=== PATIENT | female | born 1955 | race Caucasian/White ===

== ENCOUNTER 2020-05-23 14:04 | Outpatient (CLI) | payer OTHER, SELFPAY ==
--- NOTE | 2020-05-23 | DI.MRI_ITS ---
EXAM: MR LOWER JOINT LT WO CLINICAL HISTORY: ? POSTERIOR TIBIAL TENDON TEAR, LT TIBIAL TENDON DYSFUNCTION W/ PAIN. TECHNIQUE: Multiplanar multisequence MRI was performed. MR examination of the left ankle was perfor med according to the usual protocol. COMPARISON: No exams were available for comparison FINDINGS: There is reportedly clinical suspicion of tibialis posterior tendon tear. There is a moderate-sized accessory ossicle of the medial aspect of the navicular. There is mildly a bnormal signal of the navicular and the ossicle. There is abnormal signal in superomedial calcaneona vicular ligament and intermediate calcaneonavicular ligament. There is abnormal signal in an enlarge d tibialis posterior tendon, which shows a longitudinal split throughout most of its course. There i s markedly abnormal signal of the tibialis posterior tendon just proximal to its insertion on the acc essory ossicle of the medial navicular and there also appears to be abnormal signal of the more dista l portions of tibialis posterior tendon adjacent to their cuneiform insertions. No other significant ligamentous or tendinous abnormality seen involving the ankle apart from minimal ly abnormal signal adjacent to the Achilles insertion on the calcaneus. No other bony signal abnorma lity seen. 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 Abnormal signal also noted in spring ligament components including superomedial and inte rmediate calcaneonavicular ligaments. DATA REPOSITORY:
== END 2020-05-23 14:24 ==
PROVIDERS: PCP Nurse Practitioner Family; Visit Provider Podiatrist
DX: M79.605 Pain in left leg (principal); M76.822 Posterior tibial tendinitis, left leg; S86.112A Strain of other muscle(s) and tendon(s) of posterior muscle group at lower leg level, left leg, initial encounter
CPT/HCPCS: 73721

== ENCOUNTER 2021-03-08 08:48 | Day surgery (SDC) | payer OTHER, SELFPAY ==
[2021-03-08 09:06] VITALS: BP 152/84; PULSE 80; RESP 16; TEMP 36.8; O2SAT 96
[2021-03-08] MEDS: Tropicam./Phenyleph. (1/2.5%) 5 ML BTL OS ×3 (09:22→09:35)
[2021-03-08] MEDS: Tetracaine 0.5% 4 ML BTL OS (10:33)
[2021-03-08] MEDS: Balanced Salt Soln.-PLUS 500 ML BAG (10:34)
[2021-03-08] MEDS: Duovisc Viscoelastic System EACH 1 EACH (10:35)
[2021-03-08] MEDS: Lidocaine 1% Pres-Free 5 ML VIAL (10:35)
[2021-03-08] MEDS: Lidocaine 2% Jelly 6 ML SYR (10:36)
[2021-03-08] MEDS: Povidone-Iodine Ophth 30 ML BTL (10:37)
--- NOTE | 2021-03-08 10:55 | W.PM.DSUDISC ---
Discharge Plan Disposition Patient Disposition: HOME Condition: Good Discharge Details Attending Provider: Damien Narvaez Primary Care Provider: Sushma Salazar [place] Meds and New Rx's Prescriptions: No Action citalopram 40 mg Tablet 40 mg PO DAILY RF: 0 trazodone 50 mg tablet 50 - 100 mg PO HS PRNRF: 0 metoprolol succinate 50 mg tablet extended release 24 hr 50 mg PO DAILY RF: 0 colesevelam [WelChol] 625 mg Tablet 625 mg PO DAILY PRNRF: 0 pantoprazole 40 mg Tablet,Delayed Release (Dr/Ec) 40 mg PO DAILY RF: 0 hydrochlorothiazide 25 mg Tablet 25 mg PO DAILY RF: 0 lorazepam 1 mg tablet 0.5 mg PO DAILY PRNRF: 0 albuterol sulfate 90 mcg/actuation Hfa Aerosol Inhaler 1 puff INHALATION Q4H PRNRF: 0 gabapentin 100 mg Tablet 100 mg PO DAILY PRNRF: 0 diclofenac sodium 1 % gel 1 applic TOPICAL BID RF: 0 cholecalciferol (vitamin D3) [Vitamin D3] 50 mcg (2,000 unit) capsule 50 mcg PO DAILY RF: 0 Discharge Instructions Stand Alone Forms: Post-op Topical Cataract, [place] (DSU) Discharge Orders Discharge Orders: Discharge Order (Routine); Ordered 03/08/21 Ordered By: Damien Narvaez DS: Diagnosis Discharge Diagnosis (1) Cortical cataract of left eye: Status: Resolved (2) Nuclear sclerotic cataract of left eye: Status: Resolved
--- NOTE | 2021-03-08 10:56 | W.PM.OP ---
Date of service: 03/08/21 Time of Service: 10:56 Operative Note Operative Note DATE OF PROCEDURE: 03/08/21 PRE-OP DIAGNOSIS: Nuclear/cortical cataract, left eye POST-OP DIAGNOSIS: same PROCEDURE: Cataract extraction using phacoemulsification with intraocular lens implant, left eye SURGEON: Damien Narvaez ANESTHESIA TYPE: Local By Surgeon and MAC Refer to Anesthesia Record PATHOLOGY: none sent COMPLICATIONS: None Patient was transported to: same day Patient's condition: stable Implants: Dov and Dov Vision / [employer] Tecnis ZCB00 Indications: Progressive decreased vision due to cataract, left eye Procedure Description: CATARACT SURGERY OPERATIVE REPORT PREOPERATIVE DIAGNOSIS: Nuclear/cortical cataract, left eye POSTOPERATIVE DIAGNOSIS: Same OPERATION: Cataract extraction using phacoemulsification with posterior chamber intraocular lens implant, left eye. IOL: IOL Computer Systems Security Analyst/Model: J[employer]J Vision / ENE Tecnis ZCB00 IOL Power: + +21.0 diopters IOL Serial Number: [id number] Optic Diameter: 6.0mm Haptic/Overall Diameter: 13.0mm PHACO INFO: [employer] Vision System with OZil and Active Fluidics Cumulative Dispersed Energy (CDE): 5.11 seconds SURGEON: Damien Narvaez MD, DURGA ANESTHESIA: Monitored Anesthesia Care (MAC), with local sub-tenon's anesthetic infiltration COMPLICATIONS: None SPECIMENS: None INDICATIONS FOR PROCEDURE: The patient is a 65-year-old lady with history of diminished visual acuity in her left eye. She is noted to have a moderate nuclear and cortical cataract in the left eye. The option of cataract surgery was offered to the patient and she wished to proceed. PROCEDURE: The correct surgical eye was identified and marked as the left eye and the pupil was dilated in the preoperative area using mydriatics and cycloplegics. The dilated pupil size was 7.0 mm. Oral sedation was administered in the form of an Imprimis MKO Melt (midazolam 3mg/ketamine 25mg/ondansetron 2mg). The patient was brought to the operating room where cardiopulmonary monitoring was instituted and surgical time-out was performed, confirming the correct operative eye and IOL power. Topical anesthesia was administered and ophthalmic povidone-iodine 5% was instilled into the conjunctival fornices. Lidocaine gel was applied to the cornea and the killian-ocular area was prepped with Betadine 10% solution and draped in the usual sterile fashion for intraocular surgery, including an aperture drape. A Tegaderm transparent film dressing was cut in half and used to cover the lashes and lid margins. Care was taken to sequester the lashes and lid margins under the Tegaderm dressing. A lid speculum was placed between the lids of the operative eye and the Ever-Kristen operating microscope was maneuvered into position. Jaylin scissors were then used to make a conjunctival buttonhole approximately 6mm posterior to the limbus in the inferonasal quadrant. Blunt dissection was carried out to expose bare sclera, and a blunt-tipped sub-tenon?s anesthesia cannula was introduced and passed posteriorly along the globe where non-preserved plain lidocaine was injected into posterior sub-Tenon?s space. A sideport knife was used to make a paracentesis port superior/superiortemporally. Intraocular phenylephrine/lidocaine was injected into the anterior chamber. The anterior chamber was then filled with viscoelastic. A 2.4mm keratome knife was used to create a half-thickness groove at the limbus and then to construct a three-plane near-clear corneal tunnel extending 2.0mm into clear cornea in the temporal position. . A flap was raised on the anterior capsule and capsulorhexis forceps were used to complete a continuous curvilinear capsulorhexis of 5.5 mm. Balanced salt solution was then used to perform cortical cleaving hydrodissection and nuclear hydrodelineation until the lens could be freely rotated within the capsular bag. The lens nucleus was then disassembled and removed within the capsular bag and iris plane using phacoemulsification. Residual cortical material was removed using the 45-degree angled silicone I/A tip with 0.3mm port. The posterior capsule was carefully polished to remove as much residual lens epithelial cells as safely possible. The capsular bag was then inflated and the anterior chamber deepened with viscoelastic. The lens implant described above was inserted into the capsular bag using the ENE [place] Injector. A Kuglen hook was used to dial the IOL into position. Residual viscoelastic was then removed first from posterior to the IOL, then from the anterior chamber using the I/A handpiece. The lens implant was noted to center nicely within the capsular bag. The incisions were stromally hydrated, and the anterior chamber was reformed using BSS. Then 0.5cc of moxifloxacin 1.0mg/ml were injected into the capsular bag and anterior chamber. The incisions were checked with a Weck spear and found to be secure. Several drops of ophthalmic povidone-iodine 5% were then applied to the eye followed by two drops of Imprimis combination prednisolone/moxifloxacin/nepafenac solution. The drapes were removed and a clear plastic protective eye shield was placed over the eye. The patient was then returned to [facility] Surgery in stable condition.
[2021-03-08 11:20] VITALS: BP 136/77; PULSE 70; RESP 16; TEMP 36.4; O2SAT 95
== END 2021-03-08 11:25 | disposition home or self-care (01) ==
PROVIDERS: PCP Nurse Practitioner; Visit Provider Ophthalmology
PROC: (CPT 66984; principal; 2021-03-08 11:30)
DX: H25.12 Age-related nuclear cataract, left eye (principal); H25.012 Cortical age-related cataract, left eye; I10 Essential (primary) hypertension
CPT/HCPCS: 66984; V2632

== ENCOUNTER 2021-07-19 08:17 | Emergency (ER) | payer OTHER, SELFPAY ==
[2021-07-19 08:21] VITALS: BP 155/82; PULSE 104; RESP 20; TEMP 36.6; O2SAT 96
--- NOTE | 2021-07-19 08:30 | DI.CT_ITS ---
Exam(s) CT HEAD CERVICAL SPINE WO EXAM: CT HEAD CERVICAL SPINE WO CLINICAL HISTORY: cspine and STOREY post fall. TECHNIQUE: Imaging Protocol: Axial computed tomography images with coronal and sagittal reformatted images were created and reviewed COMPARISON: No exams were available for comparison FINDINGS: CT Head: Ventricles and Extra axial spaces: Normal in size and morphology for the patient's age. Hemorrhage: None. Cerebral parenchyma: Normal. Midline shift: None. Brainstem/Cerebellum: Normal. Calvarium: Normal. Visualized Paranasal sinuses/Mastoids: Clear. Soft Tissues: Unremarkable. CT Cervical Spine: Bones: No acute fracture or subluxation. Soft Tissues: Unremarkable. Lung Apices: Clear. IMPRESSION: 1. No acute intracranial process. 2. No acute fracture or subluxation in the cervical spine. 3. Results of this exam have been verbally communicated with provider. RADIATION DOSE DELIVERED: 1,255.75mGy.cm Total DLP DATA REPOSITORY: All CT scans at this facility are submitted to the National Radiology Data Registry (NRDR) Dose Index Registry (DIR) with the [employer] (ACR). RADIATION OPTIMIZATION: All CT scans at this facility use at least one of these dose optimization te chniques: automated exposure control; mA and/or kV adjustment per patient size (includes targeted exa ms where dose is matched to clinical indication); or iterative reconstruction.
--- OUTSIDE RECORDS SUMMARY | 2021-07-19 08:30 | XMS_ITS ---
:1955 Author Care Team Providers Name Role Phone DR. JAJA ADAMS Primary Care Provider [phone] DR. JAJA ADAMS Referring Provider [phone] JAJA ADAMS Primary Care Provider [phone] Allergies Code Code System Name Reaction Severity Status Onset NKDA ? Medications Name Status Start Date Stop Date ? ? citalopram 40 mg tablet Active ? Not avai lable Take 1 tablet every day by oral route. gabapentin 100 mg capsule Active ? Not av ailable Take 1 capsule every day by oral route as needed. hydrochlorothiazide 25 mg tablet Active ? Not available lorazepam 1 mg tablet Active ? Not availa ble TAKE 1-2 TABLET(s) (1 MG) BY ORAL ROUTE 3 TIMES PER DAY NEED ED metoprolol succinate ER 50 mg Active ? No t available tablet,extended release 24 hr omeprazole 40 mg capsule,delayed release Active ? Not available Take 1 capsule every day by oral route. Penlac 8 % topical solution Active ? Not available APPLY TO THE AFFECTED AREA(S) BY TOPICA L ROUTE ONCE DAILY PREFERABLY AT BEDTIME OR 8 HOURS BEFORE WASHING prednisone 20 mg tablet Active ? Not avai lable trazodone 50 mg tablet Active ? Not avail able Problems Name Status Onset Date Source ? Grief Finding Active ? ? Depressive Disorder Active ? ? Skin Tenderness Active ? ? Procedures Date Name Performed by ? ? Appendectomy Information not avai lable ? Cholecystectomy Information not avai lable ? Hysterectomy Information not avai lable ? Tonsillectomy Information not avai lable Results Lab Results Date Name Specimen Result Interpretation Description Value Range Status Address ? 01/26/2020 Influenza Normal [facility], (Lab): [address] [facility] ? ? Normal Flub negative negative Final [facility] (Lab): [address] [facility] Past Encounters None recorded. Social History Tobacco Smoking Status Never Smoker Vaccine List None recorded. Plan of Care Reminders Provider Appointments None ? ? recorded. Lab None ? ? recorded. Referral None ? ? recorded. Procedures None ? ? recorded. Surgeries None ? ? recorded. Imaging None ? ? recorded. Vitals 12/27/2019 02:30PM NEW PATIENT Blood Pressure 150/80 mm[Hg] 10/04/2019 02:45PM General Surgery Consult 40 min Weight Blood Pressure 83.91 kg 118/74 mm[Hg]
--- NOTE | 2021-07-19 08:39 | ED.GENADUL_ITS ---
Discharge Plan Disposition Patient Disposition: HOME Condition: Stable Discharge Details Clinical Impression: Diverticulitis, Abdominal pain, Fall Primary Care Provider: Sushma Salazar ED Provider: Julianne Frederick Home Meds and New Rx's Prescriptions: New amoxicillin-pot clavulanate [Augmentin] 875-125 mg tablet 1 tab PO BID Qty: 20 RF: 0 prochlorperazine maleate [Compazine] 5 mg tablet 5 mg PO TID PRNQty: 10 RF: 0 oxycodone 5 mg capsule 2.5 mg PO Q8H PRNQty: 5 RF: 0 fluconazole [Diflucan] 150 mg tablet 150 mg PO ONCE Qty: 1 RF: 0 No Action sodium chloride [Saline Nasal] 0.65 % Aerosol,[place] 2 spray INTRANASAL PRN PRNRF: 0 citalopram 40 mg Tablet 40 mg PO DAILY RF: 0 trazodone 50 mg tablet 50 - 100 mg PO HS PRNRF: 0 metoprolol succinate 50 mg tablet extended release 24 hr 50 mg PO DAILY RF: 0 colesevelam [WelChol] 625 mg Tablet 625 mg PO DAILY PRNRF: 0 pantoprazole 40 mg Tablet,Delayed Release (Dr/Ec) 40 mg PO DAILY RF: 0 hydrochlorothiazide 25 mg Tablet 25 mg PO DAILY RF: 0 lorazepam 1 mg tablet 0.5 mg PO DAILY PRNRF: 0 albuterol sulfate 90 mcg/actuation Hfa Aerosol Inhaler 1 puff INHALATION Q4H PRNRF: 0 gabapentin 100 mg Tablet 100 mg PO DAILY PRNRF: 0 diclofenac sodium 1 % gel 1 applic TOPICAL BID RF: 0 cholecalciferol (vitamin D3) [Vitamin D3] 50 mcg (2,000 unit) capsule 50 mcg PO DAILY RF: 0 Discharge Instructions Instructions: Diverticulitis (ED) Additional Instructions: Take Compazine as needed for nausea and vomiting, you may want to take this 20 minutes before taking your antibiotic Yogurt daily while taking antibiotics Take oxycodone for pain uncontrolled with Tylenol 650 which you may take every 4-6 hours Please be aware that oxycodone is addictive and it may make you constipated, use it sparingly, do not drive for 8 hours after taking this medication, return with worsening pain, fever, chills, or with any new or worsening complaints Recheck in 48 hours recommended Discharge Data Discharge Date/Time-TO BE ENTERED AT DEPARTURE: 07/19/21 11:56 Medical Decision Making Patient is well in appearance. Slight leukocytosis at 15,[address] scan shows evidence of diverticulitis She is otherwise afebrile and she would feel comfortable being discharged home She is asymptomatic There is no evidence of significant intra-abdominal pathology from trauma CT head and cervical spine do not show abnormality She is given antiemetics for home She is given a small amount of opiate analgesia with risk of addiction discussed Given very low threshold to return with new or worsening complaints recheck in 48 hours recommended HPI General Mode of arrival: ambulatory . Date/Time Provider Initiated Documentation: 07/19/21 08:29 . Limitations to Documentation: no limitations . Information obtained by: patient . HPI Narrative: This 65-year-old female with past medical history of cataracts, depression anxiety, asthma, hypertension, GERD presents status post fall on Thursday. She was using a weed Gogo when she slipped, landing on the handle of the way back on her left side. She does not believe she hit her head but has had a headache intermittently since that time. She denies any vomiting. She has abdominal pain in her left upper quadrant and left lower quadrant that is been persistent and is worsening which concerned her. She states it radiates to her flank. She denies any strength or sensation changes. She states her neck feels tight . She denies any chest pain or shortness of breath. She states with movement her pain dramatically worsens especially, walking and going from sitting to standing. She states it actually feels similarly to when she had diverticulitis in the past. She denies any blood in stool or urine. Denies any fever or chills. She has not taken any of the counter medications today. Related Data Home Medications Medication Instructions Recorded Confirmed albuterol sulfate 1 puff INHALATION Q4H PRN 03/06/21 07/19/21 cholecalciferol (vitamin D3) 50 mcg PO DAILY 03/06/21 07/19/21 [Vitamin D3] citalopram 40 mg PO DAILY 03/06/21 07/19/21 colesevelam [WelChol] 625 mg PO DAILY PRN 03/06/21 07/19/21 diclofenac sodium 1 applic TOPICAL BID 03/06/21 07/19/21 gabapentin 100 mg PO DAILY PRN 03/06/21 07/19/21 hydrochlorothiazide 25 mg PO DAILY 03/06/21 07/19/21 lorazepam 0.5 mg PO DAILY PRN 03/06/21 07/19/21 metoprolol succinate 50 mg PO DAILY 03/06/21 07/19/21 pantoprazole 40 mg PO DAILY 03/06/21 07/19/21 trazodone 50 - 100 mg PO HS PRN 03/06/21 07/19/21 amoxicillin-pot clavulanate 1 tab PO BID #20 tab 07/19/21 [Augmentin] fluconazole [Diflucan] 150 mg PO ONCE #1 tab 07/19/21 oxycodone 2.5 mg PO Q8H PRN #5 cap 07/19/21 prochlorperazine maleate 5 mg PO TID PRN #10 tab 07/19/21 [Compazine] sodium chloride [Saline Nasal] 2 spray INTRANASAL PRN PRN 07/19/21 07/19/21 Previous Rx's Medication Instructions Recorded amoxicillin-pot clavulanate 1 tab PO BID #20 tab 07/19/21 [Augmentin] fluconazole [Diflucan] 150 mg PO ONCE #1 tab 07/19/21 oxycodone 2.5 mg PO Q8H PRN #5 cap 07/19/21 prochlorperazine maleate 5 mg PO TID PRN #10 tab 07/19/21 [Compazine] Allergies Allergy/AdvReac Type Severity Reaction Status Date / Time No Known Allergies Allergy Unverified 07/19/21 08:23 General Stated Complaint: Trauma LALA: 3 Review of Systems All systems reviewed & are unremarkable except as noted in HPI and below PFSH Medical History (Updated 07/19/21 @ 11:46 by YAMILET Hernandez) Adjustment disorder Anxiety Breast cyst Right Depression GERD (gastroesophageal reflux disease) High blood pressure Hyperlipemia Mild obstructive sleep apnea Neuropathy pt denies PTSD (post-traumatic stress disorder) Surgical History (Updated 03/08/21 @ 10:56 by Damien Narvaez MD) History of cholecystectomy History of hysterectomy Hx of appendectomy Hx of removal of cyst R groin - multi cyst removal Hx of tonsillectomy Social History Smoking/Tobacco Use Status: Never Smoking risk assessment performed?: Yes Alcohol Intake: current Alcohol Intake frequency: holidays/special occasions only Drug use: Never Substance use type: does not use Do you feel safe at home: Yes Do you feel safe in your relationship?: Yes Exam Const General: cooperative and no acute distress HENMT Head: normal to inspection Mouth: oral mucosae normal Throat: uvula midline Other: No hemotympanum Eyes Pupils: PERRL Neck Other: Paraspinal tenderness Resp Effort & Inspection: normal respiratory effort Auscultation: clear to auscultation bilaterally Cardio Rate: regular rate Rhythm: regular rhythm GI Other: Left upper quadrant and left lower quadrant abdominal tenderness, no rebound or guarding, no visible sign of trauma, no abdominal bruit or pulse Skin General skin exam: no rashes or lesions noted Trauma: no lacerations or abrasions Neuro General: patient alert and patient oriented x3 Cranial Nerves: CN's II-XI intact bilaterally and tongue midline Gait: normal gait Motor: strength 5/5 throughout Sensory Exam: no sensory deficits noted Other: ambulatory with steady gait Extrem Other: No lower abdominal trauma Course Vital Signs Vital signs: Vital Signs Temperature 36.6 C 07/19/21 08:21 Pulse 104 H 07/19/21 08:21 Respiratory Rate 20 07/19/21 08:21 Blood Pressure 155/82 H 07/19/21 08:21 Pulse Oximetry 96 07/19/21 08:21 Temperature 36.6 C 07/19/21 08:21 Temperature Source Skin 07/19/21 08:21 Pulse 104 H 07/19/21 08:21 Respiratory Rate 20 07/19/21 08:21 Respiratory Effort Non-Labored 07/19/21 08:27 Blood Pressure 155/82 H 07/19/21 08:21 Blood Pressure Position Sitting 07/19/21 08:21 Pulse Oximetry 96 07/19/21 08:21 Oxygen Delivery Method Room Air 07/19/21 08:21 Oxygen Flow Rate 0 07/19/21 08:21 Pain Level 8 07/19/21 08:21
[2021-07-19] MEDS: ACETAMINOPHEN 1,000 MG/100 ML BTL 400 MG IVPB (08:54)
[2021-07-19 09:00] LABS: Abs Immature Grans 0.07 10^3/uL (0.0-0.06); Absolute Basophil Count 0.03 10^3/uL (0.0-0.2); Absolute Eosinophil Count 0.13 10^3/uL (0.0-0.7); Absolute Lymphocyte Count 1.97 10^3/uL (1.2-3.4); Basophils % 0.2; Eosinophils % 0.8; HCT 45.2 % (36.0-46.0); HGB 14.9 g/dL (11.2-15.7); Immature Grans % 0.4; Lymphocytes % 12.4; MCH 28.5 pg (27.0-33.0); MCV 86.4 fL (80-95); MPV 9.6 fL (8.0-11.0); Monocytes % 6.5; Neutrophils % 79.7; Nucleated RBC 0 %; Platelet Count 334 10^3/uL (130-400); RBC 5.23 10^6/uL (3.93-5.22); RDW-SD 40.8 fL; WBC 15.92 10^3/uL (4.4-10.8)
[2021-07-19 09:02] LABS: Absolute Monocyte Count 1.03 10^3/uL (0.1-0.8); Absolute Neutrophil Count 12.69 10^3/uL (1.2-6.7)
[2021-07-19 09:12] LABS: Bilirubin Negative (Negative); Blood Trace-lysed (Negative); Clarity Cloudy (Clear); Glucose Negative (Negative); Ketones Negative (Negative); Leukocyte Esterase Negative (Negative); Nitrite Negative (Negative); Specific Gravity >= 1.030 (1.005-1.025); pH 5.5 (5-8)
[2021-07-19 09:17] LABS: ALT 43 U/L (14-59); AST 17 U/L (15-37); Albumin 3.9 g/dL (3.4-5.0); Alkaline Phosphatase 81 U/L (46-116); Anion Gap 9.8 mmol/L (3-11); BUN 17 mg/dL (7-18); Bilirubin, Total 0.9 mg/dL (0.2-1.0); CO2 28.2 mmol/L (21.0-32.0); CREATININE 0.8 mg/dL (0.55-1.02); Calcium 9.6 mg/dL (8.5-10.1); Chloride 101 mmol/L (98-107); Glucose 133 mg/dL (74-106); Lipase 106 U/L (73-393); Potassium 3.9 mmol/L (3.5-5.1); Sodium 139 mmol/L (136-145); Total Protein 7.9 g/dL (6.4-8.2)
[2021-07-19 09:21] LABS: C & S Indicated? No/Sq. Contamination; Crystals Many Amorphous HPF (Negative); Epithelial Cells Many HPF (Negative); Mucus Heavy (Negative)
[2021-07-19] MEDS: Normal Saline 500 ML IV (10:02)
[2021-07-19] MEDS: Metoclopramide 10 MG/2 ML VIAL 5 MG IVP (10:05)
--- NOTE | 2021-07-19 10:30 | DI.CT_ITS ---
Exam(s) CT CHEST/ABD/PEL W EXAM: CT CHEST/ABD/PEL W CLINICAL HISTORY: left lower abdominal pain, luq pain, left chest pa TECHNIQUE: Imaging Protocol: Axial computed tomography images with coronal and sagittal reformatted images were created and reviewed CONTRAST MATERIAL: Intravenous: Omnipaque 350 Contrast volume:100 mL Oral: No COMPARISON: No exams were available for comparison FINDINGS: CHEST: Tracheobronchial tree: Patent where visualized. Pulmonary parenchyma: No consolidation or dominant measurable mass. No architectural distortion. Visualized thyroid gland: Unremarkable. Mediastinum and Karen: No dominant adenopathy or fluid collection. Pleura: No effusion or pneumothorax. Heart: The heart is not dilated. No coronary artery calcifications are seen. No pericardial effusion. Aorta: Thoracic aorta non-dilated. Mild atherosclerosis. Lymph nodes: Within normal limits. Soft tissues: Unremarkable. Bones:Within normal limits for the patient's age. ABDOMEN: Liver: Fatty infiltration. No measurable mass. Portal, Superior Mesenteric, and Splenic Veins: Unremarkable. Gallbladder and Biliary Tract: Status post cholecystectomy. No biliary ductal dilatation. Pancreas: Normal density, no abnormal calcifications or inflammatory process. Spleen: Normal. Adrenals: No masses seen. Kidneys: Normal size, contour and axis. No radiodense stones or obstructive uropathy. Simple renal cy sts. No follow-up is recommended. Abdominal Aorta: Abdominal portion non-dilated. Bowel: No obstruction. There is bowel wall thickening seen in the descending colon and proximal sigm oid colon. Pericolonic inflammatory changes are present. Diverticula are noted in this region. The findings are most consistent with acute diverticulitis. No abscess or free air. No evidence of sola endicitis. Peritoneal Cavity: No ascites, collection or mesenteric inflammatory response. No free air. Lymph Nodes: Within normal limits. Bones: Unremarkable. Soft Tissues: Unremarkable. PELVIS: Bladder: Symmetric distention, no gross wall thickening. Reproductive Organs: Status post hysterectomy. Lymph Nodes: Within normal limits. Bones: Within normal limits. IMPRESSION: 1. Findings of acute diverticulitis involving the descending and proximal sigmoid colon. No abscess or free air. 2. No acute pulmonary process. 3. Results of this exam have been verbally communicated with provider. RADIATION DOSE DELIVERED: 1,601.41mGy.cm Total DLP DATA REPOSITORY: All CT scans at this facility are submitted to the National Radiology Data Registry (NRDR) Dose Index Registry (DIR) with the [employer] (ACR). RADIATION OPTIMIZATION: All CT scans at this facility use at least one of these dose optimization te chniques: automated exposure control; mA and/or kV adjustment per patient size (includes targeted exa ms where dose is matched to clinical indication); or iterative reconstruction.
[2021-07-19] MEDS: Omnipaque 350 MG/ML 100 ML BTL IJ (10:58)
[2021-07-19 11:41] VITALS: BP 169/88; PULSE 78; RESP 18; TEMP 36.4; O2SAT 94
[2021-07-19 11:47] VITALS: BP 169/88; PULSE 78; RESP 18; TEMP 36.4; O2SAT 94
[2021-07-19] MEDS: Ondansetron O.D.T. 4 MG TABEF PO (11:52)
[2021-07-19] MEDS: Amoxicillin 875/Clav. 125 TAB PO (11:53)
--- NOTE | 2021-07-19 19:45 | W.ED.FU ---
Prescription called in as noted in addendum from previous note.
[2021-07-20 12:46] LABS: COVID-19 RT-PCR UVMMC Result Negative (Negative)
== END 2021-07-19 11:56 | disposition home or self-care (01) ==
PROVIDERS: Emergency Provider Physician Assistant; PCP Nurse Practitioner
DX: K57.92 Diverticulitis of intestine, part unspecified, without perforation or abscess without bleeding (principal); R10.12 Left upper quadrant pain; R10.32 Left lower quadrant pain; W01.198A Fall on same level from slipping, tripping and stumbling with subsequent striking against other object, initial encounter
CPT/HCPCS: 36415; 74177; 80053; 83690; 86850; 86900; 86901; 96361; 96365; 96375; 99285; U0003; 70450; 71260; 72125; 81003; 81015; 85025; 99284; J0131; J2765; J3490

== ENCOUNTER 2023-02-23 08:47 | Day surgery (SDC) | payer MEDICARE, SELFPAY ==
[2023-02-23 09:13] VITALS: BP 122/83; PULSE 71; RESP 16; TEMP 36.5; O2SAT 96
[2023-02-23] MEDS: Tropicam./Phenyleph. (1/2.5%) 5 ML BTL OD ×3 (09:27→09:33)
--- NOTE | 2023-02-23 10:07 | W.ANESPRE ---
General Info Date of Service Date Performed: 02/23/23 Height: 5 ft 0.5 in Weight: 91 kg Body Mass Index (BMI): 38.5 Surgical Procedure: Operation Date: 02/23/23 11:40 Proposed Procedure Side Surgeon p Cataract Extraction with IOL Implant Right Damien Narvaez MD Meds Allergies and Home Medications Allergies Allergy/AdvReac Type Severity Reaction Status Date / Time No Known Allergies Allergy Unverified 02/23/23 09:11 Home Medication Medication Instructions Recorded albuterol sulfate 90 mcg/actuation 1 puff inhalation Q4H PRN 03/06/21 aerosol inhaler cholecalciferol (vitamin D3) 50 50 mcg PO DAILY 03/06/21 mcg (2,000 unit) capsule (Vitamin D3) citalopram 40 mg tablet 40 mg PO DAILY 03/06/21 colesevelam 625 mg tablet (WelChol) 625 mg PO DAILY PRN 03/06/21 gabapentin 100 mg tablet 100 mg PO DAILY PRN 03/06/21 hydrochlorothiazide 25 mg tablet 25 mg PO DAILY 03/06/21 lorazepam 1 mg tablet 0.5 mg PO DAILY PRN 03/06/21 metoprolol succinate 50 mg 50 mg PO DAILY 03/06/21 tablet,extended release 24 hr pantoprazole 40 mg tablet,delayed 40 mg PO DAILY 03/06/21 release trazodone 50 mg tablet 50 - 100 mg PO HS PRN 03/06/21 fluconazole 150 mg tablet 150 mg PO ONCE #1 tab 07/19/21 (Diflucan) oxycodone 5 mg capsule 2.5 mg PO Q8H PRN #5 caps 07/19/21 prochlorperazine maleate 5 mg 5 mg PO TID PRN #10 tabs 07/19/21 tablet (Compazine) sodium chloride 0.65 % nasal spray 2 spray intranasal PRN PRN 07/19/21 aerosol (Saline Nasal) fluticasone 250 mcg-salmeterol 50 1 inh inhalation BID 10/13/22 mcg/dose blistr powdr for inhalation (Advair Diskus) losartan 25 mg tablet 25 mg PO DAILY 10/13/22 Current Visit Medications: Current Medications Generic Name Dose Route Start Last Admin Trade Name Freq PRN Reason Stop Dose Admin Acetaminophen 1,000 mg 02/23/23 06:27 Acetaminophen 500 Mg Tab PO Q4H PRN PRN Miscellaneous Medication 0 ml 02/23/23 06:27 Prednisolone 1%, Moxifloxacin 0.5%, Nepafenac 0.1% 5ml Btl OD DIRECTED LAQUITA Miscellaneous Medication 0 ml 02/23/23 06:27 02/23/23 09:33 Tropicam./Phenyleph. (1/2.5%) 5 Ml Btl OD 1 drp DIRECTED LAQUITA Administration Tetracaine HCl 0 ml 02/23/23 06:27 Tetracaine 0.5% 4 Ml Btl OD DIRECTED LAQUITA PFSH Active Problems Active Problems: Problem Status Onset Code Nuclear sclerotic cataract of left eye H25.12 Cortical cataract of left eye H26.9 Nuclear sclerotic cataract of right eye H25.11 Cortical cataract of right eye H26.9 Diverticulitis K57.92 Abdominal pain R10.9 Fall W19.XXXA Medical History Medical History Adjustment disorder Anxiety Breast cyst Right Depression GERD (gastroesophageal reflux disease) High blood pressure Hyperlipemia Mild obstructive sleep apnea Neuropathy pt denies PTSD (post-traumatic stress disorder) Per pt. states nothing currently that is a potential trigger at this time. Medical History Comments:: Per pt. states, My mother is allergic to anesthesia, I'luis miguel never had any issues, just vomiting after Surgical History Surgical History History of cataract surgery History of cholecystectomy History of hysterectomy Hx of appendectomy Hx of removal of cyst R groin - multi cyst removal Hx of tonsillectomy Tobacco Smoking/Tobacco Use Status: Never Alcohol Alcohol Intake: current Alcohol intake frequency: holidays/special occasions only Substance Use Substance use: Never Substance use type: does not use Vital Signs and Lab Results Vital Signs Most Recent Vital Signs in EMR: Most Recent Vital Signs Temp Pulse Resp BP Pulse Ox 36.5 C 71 16 122/83 96 02/23/23 09:13 02/23/23 09:13 02/23/23 09:13 02/23/23 09:13 02/23/23 09:13 Lab Results Blood Type / Crossmatch: No Data to Display Complete Blood Count: No Data to Display Complete Metabolic Panel: No Data to Display Liver Function Panel: No Data to Display Coagulation Panel: No Data to Display Cardiac Panel: No Data to Display Arterial Blood Gas: No Data to Display Venous Blood Gas: No Data to Display Pancreas Panel: No Data to Display Thyroid Panel: No Data to Display Infectious Disease: No Data to Display Blood Cultures: No Data to Display Toxicology Panel: No Data to Display Anesthesia Assessment and Plan Anesthesia History Personal History: PONV Family History: Other Exercise Tolerance Exercise Tolerance: Metabolic Equivalents>4 Pertinent Negatives Pertinent Negatives: No Symptoms of GERD (Controlled with Omeprazole most days per patient ), No Major Cardiovascular Symptoms or Complaints, No Major Pulmonary Symptoms or Complaints and No History of CVA/TIA Cardiac & Pulmonary Exam Cardiac Exam: Normal S1/S2 Heart Sounds Pulmonary Exam: Clear Bilateral Breath Sounds Cardiac and Pulmonary Comment:: Recently over pneumonia (>2 weeks) Implantable Cardiac Device Does patient have a Pacemaker or an ICD?: No Airway Exam Known Difficult Airway: No Mallampati Class: 3 Mouth Opening: Normal (> 3cm) Thyromental Distance: Greater than 3 cm Neck Range of Motion: Full ROM Neck Circumference: Normal Teeth Condition: Normal Dentition ASA Classification ASA Score: ASA 2 Emergency Case?: No NPO Status NPO Status: NPO Clears >2 hours, Solids >8 hours Anesthesia Plan Resuscitation Status: Full Code Anesthesia Technique: MAC Anesthesia Airway Planned: Natural Airway Monitors Used: Standard Monitors
[2023-02-23 10:11] VITALS: BMI 38.5
[2023-02-23] MEDS: Tetracaine 0.5% 4 ML BTL OD (10:46)
[2023-02-23] MEDS: Lidocaine 1% Pres-Free 5 ML VIAL (10:47)
[2023-02-23] MEDS: Balanced Salt Soln.-PLUS 500 ML BAG (10:47)
[2023-02-23] MEDS: Phenylephrine/Lidocaine (15/10) MG/ML 1 ML VIAL (10:48)
[2023-02-23] MEDS: Povidone-Iodine Ophth 30 ML BTL (10:48)
[2023-02-23] MEDS: Duovisc Viscoelastic System EACH 1 EACH (10:49)
--- NOTE | 2023-02-23 11:02 | PDOC.DSDIS_ITS ---
Date of service: 02/23/23 Time of Service: 11:02 Discharge Plan Disposition Patient Disposition: Home Discharge Details Attending Provider: Damien Narvaez Primary Care Provider: Sushma Salazar Home Meds and New Rx's Prescriptions: No Action losartan 25 mg tablet 25 mg PO DAILY fluticasone propion-salmeterol [Advair Diskus] 250-50 mcg/dose blister with device 1 inh inhalation BID Saline Nasal 0.65 % Aerosol,[place] 2 spray INTRANASAL PRN PRN prochlorperazine maleate [Compazine] 5 mg tablet 5 mg PO TID PRNQty: 10 0RF oxycodone 5 mg capsule 2.5 mg PO Q8H PRNQty: 5 0RF fluconazole [Diflucan] 150 mg tablet 150 mg PO ONCE Qty: 1 0RF Rx Instructions: as a single dose citalopram 40 mg Tablet 40 mg PO DAILY trazodone 50 mg tablet 50 - 100 mg PO HS PRN Patient Comments: TAKE 1 TO 2 TABLETS BY MOUTH ONCE DAILY AT BEDTIME NEEDED metoprolol succinate 50 mg tablet extended release 24 hr 50 mg PO DAILY Patient Comments: TAKE 1 TABLET BY MOUTH ONCE DAILY DIRECTED colesevelam [WelChol] 625 mg Tablet 625 mg PO DAILY PRN pantoprazole 40 mg Tablet,Delayed Release (Dr/Ec) 40 mg PO DAILY hydrochlorothiazide 25 mg Tablet 25 mg PO DAILY lorazepam 1 mg tablet 0.5 mg PO DAILY PRN Patient Comments: TAKE 1 2 (ONE HALF) TABLET BY MOUTH ONCE DAILY NEEDED albuterol sulfate 90 mcg/actuation Hfa Aerosol Inhaler 1 puff INHALATION Q4H PRN gabapentin 100 mg Tablet 100 mg PO DAILY PRN cholecalciferol (vitamin D3) [Vitamin D3] 50 mcg (2,000 unit) capsule 50 mcg PO DAILY Patient Comments: TAKE 1 CAPSULE BY MOUTH ONCE DAILY Discharge Instructions Stand Alone Forms: Post-op Topical Cataract, [place] ([facility]U) Discharge Orders Discharge Orders: Discharge Order (Routine); Ordered 02/23/23 Ordered By: Damien Narvaez DS: Diagnosis Discharge Diagnosis (1) Nuclear sclerotic cataract of right eye: Status: Resolved (2) Cortical cataract of right eye: Status: Resolved
--- NOTE | 2023-02-23 11:03 | ROE_ITS ---
Date of service: 02/23/23 Time of Service: 11:03 Operative Note Operative Note DATE OF PROCEDURE: 02/23/23 PRE-OP DIAGNOSIS: Nuclear/cortical cataract, right eye POST-OP DIAGNOSIS: same PROCEDURE: Cataract extraction using phacoemulsification with intraocular lens implant, right eye SURGEON: Damien Narvaez ANESTHESIA TYPE: Local By Surgeon and MAC Refer to Anesthesia Record ESTIMATED BLOOD LOSS: 0 PATHOLOGY: none sent COMPLICATIONS: None Patient was transported to: same day Patient's condition: stable Implants: Dov & Dov Tecnis Eyhance [id number] Indications: Progressive visual loss due to cataract, right eye Procedure Description: CATARACT SURGERY OPERATIVE REPORT PREOPERATIVE DIAGNOSIS: 1. Nuclear/cortical cataract, right eye POSTOPERATIVE DIAGNOSIS: Same OPERATION: 1. Cataract extraction using phacoemulsification with posterior chamber intraocular lens implant, right eye. IOL: IOL Blood Bank Attendant/Model: Dov & Dov Tecnis Eyhance DIB00 IOL Power: + 21.5 diopters IOL Serial Number: [id number] Optic Diameter: 6.0mm Haptic/Overall Diameter: 13.0mm PHACO INFO: NaviFinanceAcarurion Vision System with OZil and Active Fluidics Cumulative Dispersed Energy (CDE): 12.12 seconds SURGEON: Damien Narvaez MD, DURGA ANESTHESIA: Monitored Anesthesia Care (MAC), with local sub-tenon's anesthetic infiltration COMPLICATIONS: None SPECIMENS: None INDICATIONS FOR PROCEDURE: The patient is a 67-year-old lady with history of diminished visual acuity in her right eye secondary to the development of nuclear/cortical cataract. The option of cataract surgery was offered to the patient and she wished to proceed. She has previously undergone cataract surgery in the left eye 2 years ago, postoperative visual acuity is limited in that eye from epiretinal membrane. She now presents for cataract surgery of the right eye. PROCEDURE: The correct surgical eye was identified and marked as the right eye and the pupil was dilated in the preoperative area using mydriatics and cycloplegics. The dilated pupil size was 7.0 mm. Oral sedation was administered in the form of an Imprimis MKO Melt (midazolam 3mg/ketamine 25mg/ondansetron 2mg). The patient was brought to the operating room where cardiopulmonary monitoring was instituted and surgical time-out was performed, confirming the correct operative eye and IOL power. Topical anesthesia was administered and ophthalmic povidone-iodine 5% was instil led into the conjunctival fornices. Lidocaine gel was applied to the cornea and the killian-ocular area was prepped with Betadine 10% solution and draped in the usual sterile fashion for intraocular surgery, including an aperture drape. A Tegaderm transparent film dressing was cut in half and used to cover the lashes and lid margins. Care was taken to sequester the lashes and lid margins under the Tegaderm dressing. A lid speculum was placed between the lids of the operative eye and the Navi LuxOR Revalia operating microscope was maneuvered into position. Jaylin scissors were then used to make a conjunctival buttonhole approximately 6mm posterior to the limbus in the inferonasal quadrant. Blunt dissection was carried out to expose bare sclera, and a blunt-tipped sub-tenon?s anesthesia cannula was introduced and passed posteriorly along the globe where non- preserved plain lidocaine was injected into posterior sub-Tenon?s space. A sideport knife was used to make a paracentesis port inferotemporally. Intraocular phenylephrine/lidocaine was injected into the anterior chamber. The anterior chamber was filled with viscoelastic. A keratome knife was used to construct a 2-plane near-clear corneal tunnel extending 2.0mm into clear cornea superiortemporally. A flap was raised on the anterior capsule and capsulorhexis forceps were used to complete a continuous curvilinear capsulorhexis of 5.0 mm. Balanced salt solution was then used to perform cortical cleaving hydrodissection and nuclear hydrodelineation until the lens could be freely rotated within the capsular bag. The lens nucleus was then disassembled and removed within the capsular bag and iris plane using phacoemulsification. Residual cortical material was removed using the I/A handpiece. The posterior capsule was carefully polished to remove as much residual lens epithelial cells as safely possible. The capsular bag was then inflated and the anterior chamber deepened with viscoelastic. The lens implant described above was inserted into the capsular bag using the Dov and Khloe Simplicity pre-loaded injector. A Kuglen hook was used to dial the IOL into position. Residual viscoelastic was then removed first from posterior to the IOL, then from the anterior chamber using the I/A handpiece. The lens implant was noted to center nicely within the capsular bag. The incisions were stromally hydrated, and the anterior chamber was reformed using BSS. Then 0.5cc of moxifloxacin 1.0mg/ml were injected into the capsular bag and anterior chamber. The incisions were checked with a Weck spear and found to be secure. Several drops of ophthalmic povidone-iodine 5% were then applied to the eye followed by two drops of Imprimis combination prednisolone/moxifloxacin/nepafenac solution. The drapes were removed and a clear plastic protective eye shield was placed over the eye. The patient was then returned to Same Day Surgery in stable condition.
[2023-02-23 11:05] VITALS: BP 113/62; PULSE 70; RESP 16; TEMP 36.4; O2SAT 93
[2023-02-23] MEDS: Acetaminophen 500 MG TAB 1000 MG PO (11:10)
--- NOTE | 2023-02-23 11:21 | W.ANESPOSTOP ---
Postoperative Evaluation Date, Time and Location Date Performed: 02/23/23 Time Performed: 11:05 Patient Location: Day Surgery Unit Vital Signs Most Recent Imported Vital Signs: Most Recent Vital Signs Temp Pulse Resp BP Pulse Ox 36.4 C L 70 16 113/62 93 02/23/23 11:05 02/23/23 11:05 02/23/23 11:05 02/23/23 11:05 02/23/23 11:05 Pain Score Most Recent Pain Score: Most Recent Pain Score Pain Level 7 02/23/23 11:05 Assessment Mental Status: Awake (Alert & Oriented to Patient Baseline) Airway and Respiratory Function: Patent airway with normal (patient baseline) respiratory exam Cardiovascular Function: Hemodynamically Stable Hydration Status: Adequately Hydrated Nausea & Vomiting: No Nausea or Vomiting Pain: Pain is tolerable per patient (Mainly pressure, Dr. Narvaez did assess. ) Peripheral Nerve Block: Other (Local by Dr. Narvaez)
[2023-02-23 11:28] VITALS: BP 138/53; PULSE 72; RESP 16; TEMP 36.5; O2SAT 93
== END 2023-02-23 11:36 | disposition home or self-care (01) ==
PROVIDERS: PCP Nurse Practitioner; Visit Provider Ophthalmology
PROC: (CPT 66984; principal; 2023-02-23 11:30)
DX: H25.11 Age-related nuclear cataract, right eye (principal); Z98.42 Cataract extraction status, left eye
CPT/HCPCS: 66984; V2632

== ENCOUNTER 2023-07-18 09:44 | Inpatient (IN) | payer MEDICARE, SELFPAY ==
[2023-07-18] VITALS (12 sets, daily range): BP systolic 116–162; BP diastolic 66–120; PULSE 64–87; RESP 18–20; TEMP 36.4–37.6; O2SAT 90–92
--- NOTE | 2023-07-18 10:08 | W.ED.GENAD ---
Discharge Plan Disposition Patient Disposition: Admit to [facility] Condition: Stable Discharge Details Chief Complaint: Abd Prob Clinical Impression: Diverticulitis, Abdominal pain, Acute diverticulitis Admit Date/Time: 07/18/23 12:31 Admit Provider: Angi Evans Attending Provider: Angi Evans Primary Care Provider: Sushma Salazar ED Provider: aSloni Carver Discharge Data Discharge Date/Time-TO BE ENTERED AT DEPARTURE: 07/18/23 13:03 Medical Decision Making Patient is a pleasant 67-year-old female with past medical history significant for diverticulitis, presenting today with chief complaint of the same. She reports that her symptoms began during this bout about 6 days ago. She states that she was seen by her PCP who started her on metronidazole and she has been taking this as prescribed since Thursday. Despite this, the pain has increased in the left side. She reports the pain is stabbing in nature and fairly consistent, worsened when driving, walking or anything that requires abdominal movements. She had diminished appetite, nausea and vomiting. Has had some liquidy stools yesterday but these seem to have slowed and firmed up more today. No change in urinary habits. No vaginal discharge. Past surgical history is significant for cholecystectomy, appendectomy, hysterectomy. Past medical history also includes adjustment disorder, anxiety, depression, GERD, NAOMY. She haad had fever at home, took APAP last night. On exam, patient appears uncomfortable. She is hemodynamically stable. Her lungs are clear, normal cardiac exam, patient denies any chest pain or shortness of breath. She is guarding and point tender in the left upper quadrant with some more faint tenderness extending into the left lower quadrant in the epigastric region. She does report that this can radiate into the back but does not have any umair CVA tenderness. Concern for potential complication associate with her diverticulitis such as perforation or abscess. Also considered alternative diagnosis such as pancreatitis. Patient denies any alcohol intake. We will begin hydration, keep patient NPO, give antiemetic and analgesics. Labs reviewed, lactate WNL, WBC elevated at 18. FINDINGS: Lungs: Bibasilar atelectasis. Liver: Decreased attenuation of the liver consistent with fatty infiltration. Gallbladder and bile ducts: Cholecystectomy. Common bile duct measures 0.9 cm. Pancreas: Normal. No ductal dilation. Spleen: Normal. No splenomegaly. Adrenal glands: Normal. No mass. Kidneys and ureters: Stable simple renal cyst. Stomach and bowel: Diverticulitis of the transverse colon, left colon, and sigmoid colon. Multiple diverticuli throughout the entire colon. Pericolonic fat infiltration, with no abscess or free air. Normal caliber small bowel. Decompressed stomach. Appendix: Appendectomy. Intraperitoneal space: Pericolonic fat infiltration. No free air or free fluid. Vasculature: Unremarkable. No abdominal aortic aneurysm. Lymph nodes: Unremarkable. No enlarged lymph nodes. Urinary bladder: Unremarkable as visualized. Reproductive: Hysterectomy. Bones/joints: Unremarkable. No acute fracture. Soft tissues: Umbilical hernia. IMPRESSION: 1. ? Diverticulitis of the transverse colon, left colon, and sigmoid colon. No abscess or free air. 2. ? Additional findings as discussed above. Discussed with patient. Started on Zosyn. Pain is controlled. Will consult with general surgery. Consulted with Dr. Evans who recommends admission for her diverticulitis. Discussed with patient who agrees. All of her questions and concerns were addressed. HPI General Date/Time Provider Initiated Documentation: 07/18/23 10:07. Limitations to Documentation: no limitations. Information obtained by: patient and RN notes reviewed. History of Present Illness 67 year old F presents to the emergency department with the chief complaint of LLQ pain, hx of diverticulitis, described as severe and similar to prior episodes (has had several episodes of diverticulitis, feels the same), Quality is described as stabbing and aching, and is localized to the abdomen. Patient reports no radiation. Patient started experiencing this week(s) and it has been constant. No relieving factors improve symptom(s), No exacerbating factors reported . Patient notes fever/chills, loss of appetite and nausea/vomiting. Patient did receive the following treatments prior to arrival, other (on Flagyl x 5 days) Related Data Home Medications Medication Instructions Recorded Confirmed albuterol sulfate 90 mcg/actuation 1 puff inhalation Q4H PRN 03/06/21 02/20/23 aerosol inhaler cholecalciferol (vitamin D3) 50 50 mcg PO DAILY 03/06/21 02/23/23 mcg (2,000 unit) capsule (Vitamin D3) citalopram 40 mg tablet 40 mg PO DAILY 03/06/21 07/18/23 colesevelam 625 mg tablet (WelChol) 625 mg PO DAILY PRN 03/06/21 02/20/23 gabapentin 100 mg tablet 100 mg PO DAILY PRN 03/06/21 02/20/23 hydrochlorothiazide 25 mg tablet 25 mg PO DAILY 03/06/21 02/23/23 lorazepam 1 mg tablet 0.5 mg PO DAILY PRN 03/06/21 02/20/23 metoprolol succinate 50 mg 50 mg PO DAILY 03/06/21 07/18/23 tablet,extended release 24 hr pantoprazole 40 mg tablet,delayed 40 mg PO DAILY 03/06/21 07/18/23 release trazodone 50 mg tablet 50 - 100 mg PO HS PRN 03/06/21 02/20/23 fluconazole 150 mg tablet 150 mg PO ONCE #1 tab 07/19/21 02/20/23 (Diflucan) oxycodone 5 mg capsule 2.5 mg PO Q8H PRN #5 caps 07/19/21 02/20/23 prochlorperazine maleate 5 mg 5 mg PO TID PRN #10 tabs 07/19/21 02/20/23 tablet (Compazine) sodium chloride 0.65 % nasal spray 2 spray intranasal PRN PRN 07/19/21 02/20/23 aerosol (Saline Nasal) fluticasone 250 mcg-salmeterol 50 1 inh inhalation BID 10/13/22 02/20/23 mcg/dose blistr powdr for inhalation (Advair Diskus) losartan 25 mg tablet 25 mg PO DAILY 10/13/22 07/18/23 ondansetron HCl 4 mg tablet 4 mg PO DAILY 07/18/23 07/18/23 amoxicillin 875 mg-potassium 1 tab PO TID 10 days #30 tabs 07/21/23 clavulanate 125 mg tablet Previous Rx's Medication Instructions Recorded fluconazole 150 mg tablet 150 mg PO ONCE #1 tab 07/19/21 (Diflucan) oxycodone 5 mg capsule 2.5 mg PO Q8H PRN #5 caps 07/19/21 prochlorperazine maleate 5 mg 5 mg PO TID PRN #10 tabs 07/19/21 tablet (Compazine) amoxicillin 875 mg-potassium 1 tab PO TID 10 days #30 tabs 07/21/23 clavulanate 125 mg tablet Allergies Allergy/AdvReac Type Severity Reaction Status Date / Time No Known Allergies Allergy Unverified 02/23/23 09:11 General Stated Complaint: Abd Prob LALA: 3 Review of Systems Constitutional Constitutional: Reports as per HPI and Denies headache(s) ENT Ears, Nose, Mouth, and Throat: Denies headache(s) Cardiovascular Cardiovascular: Reports as per HPI, Denies chest pain and Denies dyspnea Respiratory Respiratory: Reports as per HPI, Denies cough and Denies dyspnea Gastrointestinal Gastrointestinal: Reports as per HPI Musculoskeletal Musculoskeletal: Reports as per HPI and Denies back pain Integumentary/Breasts Skin/Breast: Reports as per HPI and Denies rash Neurologic Neurologic: Reports as per HPI and Denies headache(s) PFSH All Active Problems (Updated 07/21/23 @ 20:43 by YAMILET Ron) Acute diverticulitis (Acute) Diverticulitis (Chronic) Abdominal pain (Acute) Fall (Acute) Medical History (Updated 07/21/23 @ 20:43 by YAMILET Ron) Adjustment disorder Anxiety Breast cyst Right Depression GERD (gastroesophageal reflux disease) High blood pressure Hyperlipemia Mild obstructive sleep apnea Neuropathy pt denies PTSD (post-traumatic stress disorder) Per pt. states nothing currently that is a potential trigger at this time. Surgical History (Updated 02/23/23 @ 11:02 by Damien Narvaez MD) History of cataract surgery History of cholecystectomy History of hysterectomy Hx of appendectomy Hx of removal of cyst R groin - multi cyst removal Hx of tonsillectomy Family History (Updated 10/13/22 @ 12:45 by Mckayla Reyes) Mother Type 2 diabetes mellitus Breast cancer Father Heart disease Colon cancer Kidney failure Brother Brain tumor Cerebral artery occlusion with cerebral infarction Sister Coronary artery disease Paternal Aunt Diabetes Social History (Updated 10/13/22 @ 12:46 by Mckayla Reyes) Smoking/Tobacco Use Status: Never Smoking risk assessment performed?: Yes Alcohol Intake: current Alcohol Intake frequency: holidays/special occasions only Drug use: Never Substance use type: does not use Housing: house What is your relationship status?: Panel score (0-1 are the most socially isolated patients): 0 Do you feel safe at home: Yes Do you feel safe in your relationship?: Yes Exam Const General: cooperative, healthy appearing, uncomfortable, no acute distress and well developed Nutritional Appearance: well nourished and overweight Orientation: alert and awake [facility] Head: normal to inspection Mouth: moist mucous membranes Resp Effort & Inspection: normal respiratory effort, able to speak in complete sentences and no respiratory distress Auscultation: clear to auscultation bilaterally, no rales, no rhonchi and no wheezes Cardio Rate: regular rate Rhythm: regular rhythm Heart Sounds: S1 normal and S2 normal GI Inspection: normal to inspection and incision (well healed incisions) Palpation: soft, no hepatosplenomegaly, not firm, guarding in the LUQ, no masses, no pulsatile masses, not rigid, tender in the LUQ and No ascites Percussion: normal to percussion Auscultation: hypoactive bowel sounds Back/Spine/Pelvis Back: no CVA tenderness Skin General skin exam: no rashes or lesions noted Trauma: no lacerations or abrasions Neuro General: patient alert and patient awake Cognition: normal cognition Speech: speech normal Gait: normal gait Course Vital Signs Vital signs: Vital Signs Temperature 37.6 C 07/18/23 09:58 Pulse 87 07/18/23 09:58 Respiratory Rate 20 07/18/23 09:58 Blood Pressure 149/75 H 07/18/23 09:58 Pulse Oximetry 90 L 07/18/23 09:58 Temperature 37.6 C 07/18/23 09:58 Pulse 87 07/18/23 09:58 Respiratory Rate 20 07/18/23 09:58 Respiratory Effort Normal, Non-Labored 07/18/23 10:00 Blood Pressure 149/75 H 07/18/23 09:58 Blood Pressure Position Sitting 07/18/23 09:58 Pulse Oximetry 90 L 07/18/23 09:58 Oxygen Delivery Method Room Air 07/18/23 09:58 Oxygen Flow Rate 0 07/18/23 09:58 Pain Level 8 07/18/23 09:58
[2023-07-18] MEDS: ACETAMINOPHEN 1,000 MG/100 ML BTL 400 MG IVPB (10:35)
[2023-07-18] MEDS: MORPHine 10 MG/ML VIAL 4 MG IVP (10:35)
[2023-07-18 10:36] LABS: Lactate 0.8 mmol/L (0.6-1.4)
[2023-07-18] MEDS: Lactated Ringers 1,000 ML 1000 ML IV (10:37)
[2023-07-18 10:38] LABS: Abs Immature Grans 0.07 10^3/uL (0.0-0.06); Absolute Basophil Count 0.07 10^3/uL (0.0-0.2); Basophils % 0.4; Eosinophils % 1.1; HCT 44.5 % (36.0-46.0); HGB 14.8 g/dL (11.2-15.7); Immature Grans % 0.4; MCH 28.5 pg (27.0-33.0); MCHC 33.3 % (32.0-36.0); MCV 86 fL (80-95); MPV 9.1 fL (8.0-11.0); Monocytes % 8.4; Neutrophils % 76.7; Platelet Count 340 10^3/uL (130-400); RBC 5.19 10^6/uL (3.93-5.22); RDW 12.6 % (11.7-14.6); RDW-SD 39.5 fL
[2023-07-18 10:55] LABS: ALT 35 U/L (14-59); AST 17 U/L (15-37); Albumin 3.3 g/dL (3.4-5.0); Alkaline Phosphatase 81 U/L (46-116); Anion Gap 8.7 mmol/L (3-11); BUN 13 mg/dL (7-18); Bilirubin, Total 0.5 mg/dL (0.2-1.0); CO2 27.3 mmol/L (21.0-32.0); CREATININE 0.9 mg/dL (0.55-1.02); Calcium 9.5 mg/dL (8.5-10.1); Chloride 104 mmol/L (98-107); Estimated GFR 69.64 (mL/min/1.73m2); Glucose 126 mg/dL (74-106); Lipase 48 U/L (16-77); Magnesium 1.8 mg/dL (1.8-2.4); Sodium 140 mmol/L (136-145); Total Protein 7.3 g/dL (6.4-8.2)
[2023-07-18 10:57] LABS: Absolute Lymphocyte Count 2.39 10^3/uL (1.2-3.4); Absolute Monocyte Count 1.55 10^3/uL (0.1-0.8); Absolute Neutrophil Count 14.11 10^3/uL (1.2-6.7)
[2023-07-18 10:58] LABS: Diff Comment Diff Reviewed; RBC Morphology Normal
[2023-07-18] MEDS: Normal Saline - Diluent 50 ML VIAL IJ (11:28)
[2023-07-18] MEDS: Normal Saline Flush 10 ML SYR IVP (11:28)
[2023-07-18] MEDS: Omnipaque 350 MG/ML 100 ML BTL IJ (11:29)
--- NOTE | 2023-07-18 11:50 | DI.CT_ITS ---
Exam(s) CT ABDOMEN PELVIS W EXAM: CT ABDOMEN PELVIS W CLINICAL HISTORY: hx diverticulitis, on abx but worsening. TECHNIQUE: Imaging Protocol: Axial computed tomography images with coronal and sagittal reformatted images were created and reviewed CONTRAST MATERIAL: Intravenous: Omnipaque-350 100cc Oral: None COMPARISON: CT CT CHEST/ABD/PEL W from 07/19/2021 FINDINGS: VISUALIZED LUNG BASES: No nodules nor pleural effusions evident. ABDOMEN: There is no ascites. LIVER: Liver is again noted be hypodense implying steatosis. There no discrete focal hepatic lesions evident. No evidence of abscess in the liver. No gas in the portal venous system. No dilated intr ahepatic ducts. GALLBLADDER/BILIARY: Gallbladder is again noted be surgically absent. CBD diameter is commensurate w ith patient's post cholecystectomy status. PANCREAS: No evidence of pancreatic mass nor dilatation of the pancreatic duct. There is a 4.5 x 2.6 cm fluid collection on the superior aspect of the 3rd part of the duodenum which is similar to prior CT scan of June 2021 and probably represents a for form of duodenal diverticul um; less likely an abscess as it has been present for some time. SPLEEN: Spleen is not enlarged. No obvious intrasplenic lesions. Splenic and portal veins are paten t. ADRENALS: There are no significant adrenal masses. KIDNEYS:Small cysts are noted in the left kidney. Do not require further imaging follow-up. No rhett d masses in either kidney. No calculi. No hydronephrosis nor hydroureter.. ABDOMINAL AORTA: Abdominal aorta is not enlarged. LYMPH NODES:There is no retroperitoneal nor paraaortic adenopathy. ABDOMINAL WALL: No evidence of significant anterior abdominal wall nor inguinal hernia. GI: There is diverticulosis of the entire colon. There is inflammatory change consistent with acute diverticulitis in the distal transverse colon. Also in the descending-left colon and 3rd area in the sigmoid colon with in the left iliac fossa. There may be a developing mural abscess in the lateral wall of the sigmoid on this most distal area of involvement. There is no free fluid. No free air. PELVIS: GI: No evidence of appendicitis. LYMPH NODES: There is no intrapelvic nor inguinal adenopathy. REPRODUCTIVE: Uterus surgically absent. No adnexal masses.. No free fluid in the pelvis. URINARY BLADDER: No calculi nor obvious masses evident OSSEOUS: No fractures and no significant osseous lesions. IMPRESSION: There is extensive diverticulosis throughout the entire colon. There are 3 separate areas of acute d iverticulitis in left side of the colon. The most proximal of these is in the distal transverse colo n. Also significant area of diverticulitis evident in the descending-left colon a few cm above the i liac crest. Third area of significant involvement is in the intrapelvic sigmoid. High risk for deve loping abscess here. No free air at this time. First read by [facility]. RADIATION DOSE DELIVERED: 1,331.85mGy.cm Total DLP DATA REPOSITORY: All CT scans at this facility are submitted to the National Radiology Data Registry (NRDR) Dose Index Registry (DIR) with the [employer] (ACR). RADIATION OPTIMIZATION: All CT scans at this facility use at least one of these dose optimization te chniques: automated exposure control; mA and/or kV adjustment per patient size (includes targeted exa ms where dose is matched to clinical indication); or iterative reconstruction.
[2023-07-18] MEDS: PIPERACILLIN/TAZO 3.375 GM in Normal Saline 50 ML IVPB ×2 (12:03→17:23)
[2023-07-18 12:06] LABS: Bilirubin Negative (Negative); Blood Negative (Negative); Clarity Clear (Clear); Glucose Negative (Negative); Ketones Negative (Negative); Leukocyte Esterase Negative (Negative); Nitrite Negative (Negative); Urobilinogen 0.2 mg/dL (Up to 0.2); pH 5.5 (5-8)
--- NOTE | 2023-07-18 12:22 | DI.VRAD_ITS ---
PROCEDURE INFORMATION: Exam: CT Abdomen And Pelvis With Contrast Exam date and time: 07/18/2023 11:30 AM Age: 67 years old Clinical indication: Abdominal pain; Generalized; Prior surgery; Surgery date: 6+ months; Surgery type: Cholecystectomy, appendectomy, hysterectomy. TECHNIQUE: Imaging protocol: Computed tomography of the abdomen and pelvis with contrast. Radiation optimization: All CT scans at this facility use at least one of these dose optimization techniques: automated exposure control; mA and/or kV adjustment per patient size (includes targeted exams where dose is matched to clinical indication); or iterative reconstruction. Contrast material: OMNIPAQUE 350; Contrast volume: 100 ml; Contrast route: INTRAVENOUS (IV); COMPARISON: CT CHEST/ABD/PEL W 19/07/2021 10:55 FINDINGS: Lungs: Bibasilar atelectasis. Liver: Decreased attenuation of the liver consistent with fatty infiltration. Gallbladder and bile ducts: Cholecystectomy. Common bile duct measures 0.9 cm. Pancreas: Normal. No ductal dilation. Spleen: Normal. No splenomegaly. Adrenal glands: Normal. No mass. Kidneys and ureters: Stable simple renal cyst. Stomach and bowel: Diverticulitis of the transverse colon, left colon, and sigmoid colon. Multiple diverticuli throughout the entire colon. Pericolonic fat infiltration, with no abscess or free air. Normal caliber small bowel. Decompressed stomach. Appendix: Appendectomy. Intraperitoneal space: Pericolonic fat infiltration. No free air or free fluid. Vasculature: Unremarkable. No abdominal aortic aneurysm. Lymph nodes: Unremarkable. No enlarged lymph nodes. Urinary bladder: Unremarkable as visualized. Reproductive: Hysterectomy. Bones/joints: Unremarkable. No acute fracture. Soft tissues: Umbilical hernia. IMPRESSION: 1. Diverticulitis of the transverse colon, left colon, and sigmoid colon. No abscess or free air. 2. Additional findings as discussed above. Dictated and Authenticated by: Tammy Shane MD. Ordering:MISTI Guallpa MD
--- NOTE | 2023-07-18 12:42 | HPE_ITS ---
Date of service: 07/18/23 Time of Service: 12:42 Assessment and Plan Assessment and plan (1) Acute diverticulitis: Status: Acute Assessment and plan: Zosyn hydration and bowel rest will check a C diff b/c she was on abx for a week already. pain management pt has a long hx of diverticulitis. However, reviewing her CT- she has severe pandiverticulitis. Will obtain CE from [facility]. DVT: lovnox GI: BioK pulm toilet monitor for peritonitis This document was created with voice activated software and may contain errors. [60mins spent with the patient today. (2) Mild obstructive sleep apnea: (3) Hyperlipemia: (4) High blood pressure: (5) GERD (gastroesophageal reflux disease): (6) Depression: (7) Anxiety: (8) Adjustment disorder: History of Present Illness Narrative: Pt has failed outpt conservative medical management w/ po cipro/flagyl. She has been sick since last Thursday. Today she woke at 5pm w/ severe L sided abdominal pain. She has been having dry heaves today. No fever/chills. She has been daniels ving diarrhea- loose x2 day. no blood. no cp/sob. no pain or swelling in legs. She is hungry. She is better currently. She normally moves her bowels daily to 2-3/day. She does strain once in a while. Father had CRC. Her last CE was in [place] less than 5 yrs ago. Her gb was laprascopic. Her appy and ARSENIO were open surgeries. Last flare of diverticulitis was 11/20. She thinks she is having about 2 flares a year. no DM no MA/CVA no asthma/COPD/ +COS and CPAP PSHX -GB ARSENIO breast bx appy no comp anesthesia from ED 07/18/23: Patient is a pleasant 67-year-old female with past medical history significant for diverticulitis, presenting today with chief complaint of the same.? She reports that her symptoms began during this bout about 6 days ago.? She states that she was seen by her PCP who started her on metronidazole and she has been taking this as prescribed since Thursday.? Despite this, the pain has increased in the left side.? She reports the pain is stabbing in nature and fairly consistent, worsened when driving, walking or anything that requires abdominal movements.? She had diminished appetite, nausea and vomiting.? Has had some liquidy stools yesterday but these seem to have slowed and firmed up more today.? No change in urinary habits.? No vaginal discharge. CT 03/18/23: FINDINGS: Lungs: Bibasilar atelectasis. Liver: Decreased attenuation of the liver consistent with fatty infiltration. Gallbladder and bile ducts: Cholecystectomy. Common bile duct measures 0.9 cm. Pancreas: Normal. No ductal dilation. Spleen: Normal. No splenomegaly. Adrenal glands: Normal. No mass. Kidneys and ureters: Stable simple renal cyst. Stomach and bowel: Diverticulitis of the transverse colon, left colon, and sigmoid colon. Multiple diverticuli throughout the entire colon. Pericolonic fat infiltration, with no abscess or free air. Normal caliber small bowel. Decompressed stomach. Appendix: Appendectomy. Intraperitoneal space: Pericolonic fat infiltration. No free air or free fluid. Vasculature: Unremarkable. No abdominal aortic aneurysm. Lymph nodes: Unremarkable. No enlarged lymph nodes. Urinary bladder: Unremarkable as visualized. Reproductive: Hysterectomy. Bones/joints: Unremarkable. No acute fracture. Soft tissues: Umbilical hernia. Review of Systems All systems reviewed & are unremarkable except as noted in HPI and below PFSH All Active Problems (Updated 07/18/23 @ 12:43 by Angi Evans DO) Acute diverticulitis (Acute) Diverticulitis (Chronic) Abdominal pain (Acute) Fall (Acute) Medical History (Updated 07/18/23 @ 12:43 by Angi Evans DO) Adjustment disorder Anxiety Breast cyst Right Depression GERD (gastroesophageal reflux disease) High blood pressure Hyperlipemia Mild obstructive sleep apnea Neuropathy pt denies PTSD (post-traumatic stress disorder) Per pt. states nothing currently that is a potential trigger at this time. Surgical History (Updated 02/23/23 @ 11:02 by Damien Narvaez MD) History of cataract surgery History of cholecystectomy History of hysterectomy Hx of appendectomy Hx of removal of cyst R groin - multi cyst removal Hx of tonsillectomy Family History (Updated 10/13/22 @ 12:45 by Mckayla Reyes) Mother Type 2 diabetes mellitus Breast cancer Father Heart disease Colon cancer Kidney failure Brother Brain tumor Cerebral artery occlusion with cerebral infarction Sister Coronary artery disease Paternal Aunt Diabetes Social History (Updated 10/13/22 @ 12:46 by Mckayla Reyes) Smoking/Tobacco Use Status: Never Smoking risk assessment performed?: Yes Alcohol Intake: current Alcohol Intake frequency: holidays/special occasions only Drug use: Never Substance use type: does not use Housing: house What is your relationship status?: Panel score (0-1 are the most socially isolated patients): 0 Do you feel safe at home: Yes Do you feel safe in your relationship?: Yes Meds Allergies and Home Medications Allergies Allergy/AdvReac Type Severity Reaction Status Date / Time No Known Allergies Allergy Unverified 02/23/23 09:11 Home Medications Medication Instructions Recorded Confirmed Type albuterol sulfate 90 mcg/actuation 1 puff inhalation Q4H PRN 03/06/21 02/20/23 History aerosol inhaler cholecalciferol (vitamin D3) 50 50 mcg PO DAILY 03/06/21 02/23/23 History mcg (2,000 unit) capsule (Vitamin D3) citalopram 40 mg tablet 40 mg PO DAILY 03/06/21 07/18/23 History colesevelam 625 mg tablet (WelChol) 625 mg PO DAILY PRN 03/06/21 02/20/23 Histor y gabapentin 100 mg tablet 100 mg PO DAILY PRN 03/06/21 02/20/23 History hydrochlorothiazide 25 mg tablet 25 mg PO DAILY 03/06/21 02/23/23 History lorazepam 1 mg tablet 0.5 mg PO DAILY PRN 03/06/21 02/20/23 History metoprolol succinate 50 mg 50 mg PO DAILY 03/06/21 07/18/23 History tablet,extended release 24 hr pantoprazole 40 mg tablet,delayed 40 mg PO DAILY 03/06/21 07/18/23 History release trazodone 50 mg tablet 50 - 100 mg PO HS PRN 03/06/21 02/20/23 History fluconazole 150 mg tablet 150 mg PO ONCE #1 tab 07/19/21 02/20/23 Rx (Diflucan) oxycodone 5 mg capsule 2.5 mg PO Q8H PRN #5 caps 07/19/21 02/20/23 Rx prochlorperazine maleate 5 mg 5 mg PO TID PRN #10 tabs 07/19/21 02/20/23 Rx tablet (Compazine) sodium chloride 0.65 % nasal spray 2 spray intranasal PRN PRN 07/19/21 02/20/23 History aerosol (Saline Nasal) fluticasone 250 mcg-salmeterol 50 1 inh inhalation BID 10/13/22 02/20/23 History mcg/dose blistr powdr for inhalation (Advair Diskus) losartan 25 mg tablet 25 mg PO DAILY 10/13/22 07/18/23 History ciprofloxacin HCl 250 mg tablet 250 mg PO DAILY 07/18/23 07/18/23 History metronidazole 250 mg tablet 250 mg PO BID 07/18/23 07/18/23 History ondansetron HCl 4 mg tablet 4 mg PO DAILY 07/18/23 07/18/23 History Exam Const General: cooperative, healthy appearing, comfortable, no acute distress, well developed and well groomed Nutritional Appearance: overweight Orientation: alert, awake and oriented x3 Other: PHYSICAL EXAM GENERAL APPEARANCE: Alert, healthy appearance, oriented, x 3,? in no acute distress HYDRATION: Well hydrated HEAD, EYES, EARS, NECK, THROAT: Head is normocephalic, pupils equal, round, reactive to light and accommodation, ocular movement intact, sclera clear and no jaundice. ?Dentition intact. LUNGS: normal respiration/normal chest excursion. ?Clear to auscultation bilaterally. ?No wheeze. ?HEART: Regular rate and rhythm. no murmurs EXTREMITY: No edema or cyanosis.? no leg pain, redness, swelling.? ABDOMEN: soft and non-tender to palpation.? Normal bowel sounds.? post-surgical changes noted. localized pain and guarding along left colon. No diffuse peritonitis. Results Labs 07/18/23 10:30 07/18/23 10:30 Labs: Laboratory Results - last 24 hr 07/18/23 07/18/23 07/18/23 10:30 10:30 10:30 WBC 18.40 H RBC 5.19 Hgb 14.8 Hct 44.5 MCV 86 MCH 28.5 MCHC 33.3 RDW 12.6 Plt Count 340 MPV 9.1 Immature Gran % 0.4 Neutrophils % 76.7 Lymphocytes % 13.0 Monocytes % 8.4 Eosinophils % 1.1 Basophils % 0.4 Nucleated RBC % 0.0 Absolute Neutrophils 14.11 H Absolute Lymphocytes 2.39 Absolute Monocytes 1.55 H Absolute Eosinophils 0.20 Absolute Basophils 0.07 RBC Morphology Normal VBG Lactate 0.8 Sodium 140 Potassium 4.0 Chloride 104 Carbon Dioxide 27.3 Anion Gap 8.7 BUN 13 Creatinine 0.9 Est GFR (CKD-EPI 2020) 69.64 Glucose 126 H Calcium 9.5 Magnesium 1.8 Total Bilirubin 0.5 AST 17 ALT 35 Alkaline Phosphatase 81 Total Protein 7.3 Albumin 3.3 L Lipase 48 Urine Color Urine Clarity Urine pH Ur Specific [place] Urine Protein Urine Ketones Urine Blood Urine Nitrite Urine Bilirubin Urine Urobilinogen Ur Leukocyte Esterase Urine Glucose 07/18/23 12:00 WBC RBC Hgb Hct MCV MCH MCHC RDW Plt Count MPV Immature Gran % Neutrophils % Lymphocytes % Monocytes % Eosinophils % Basophils % Nucleated RBC % Absolute Neutrophils Absolute Lymphocytes Absolute Monocytes Absolute Eosinophils Absolute Basophils RBC Morphology VBG Lactate Sodium Potassium Chloride Carbon Dioxide Anion Gap BUN Creatinine Est GFR (CKD-EPI 2020) Glucose Calcium Magnesium Total Bilirubin AST ALT Alkaline Phosphatase Total Protein Albumin Lipase Urine Color Yellow Urine Clarity Clear Urine pH 5.5 Ur Specific [place] 1.010 Urine Protein Negative Urine Ketones Negative Urine Blood Negative Urine Nitrite Negative Urine Bilirubin Negative Urine Urobilinogen 0.2 Ur Leukocyte Esterase Negative Urine Glucose Negative Last Vital Signs Temp 37.6 C 07/18/23 09:58 Pulse 72 07/18/23 11:15 Resp 20 07/18/23 09:58 BP 162/74 H 07/18/23 11:15 Pulse Ox 90 L 07/18/23 09:58 Time Spent Time spent with Patient: 55-74 minutes Time was spent: preparing to see the patient(eg.review tests), obtaining and/or reviewing separately otained hiistory, ordering medications,tests, procedures, referring, communicating with other health manager intensive care unit, indepentently i nterpreting results, counseling the patient and care coordination
[2023-07-18] MEDS: DEXTROSE 5%-0.45% SALINE 1,000 ML 82 ML IV (13:30)
[2023-07-18] MEDS: Enoxaparin 40 MG/0.4 ML SYR SC (14:37)
[2023-07-18] MEDS: Acetaminophen 500 MG TAB 1000 MG PO ×2 (14:46→19:59)
[2023-07-18] MEDS: MORPHine 2 MG/ML SYR IVP (14:48)
[2023-07-18] MEDS: traZODone 50 MG TAB PO (20:00)
[2023-07-19] MEDS: PIPERACILLIN/TAZO 3.375 GM in Normal Saline 50 ML IVPB ×4 (01:52→17:41)
[2023-07-19] MEDS: Normal Saline Flush 10 ML SYR IVP ×4 (01:53→11:36)
[2023-07-19] MEDS: DEXTROSE 5%-0.45% SALINE 1,000 ML 82 ML IV (02:44)
[2023-07-19] MEDS: MORPHine 2 MG/ML SYR IVP (02:49)
[2023-07-19] MEDS: Acetaminophen 500 MG TAB 1000 MG PO ×3 (06:06→21:19)
[2023-07-19] MEDS: Prochlorperazine 10 MG/2 ML VIAL 5 MG IVP (06:36)
[2023-07-19 06:49] LABS: Abs Immature Grans 0.05 10^3/uL (0.0-0.06); Absolute Basophil Count 0.05 10^3/uL (0.0-0.2); Absolute Eosinophil Count 0.49 10^3/uL (0.0-0.7); Absolute Lymphocyte Count 2.65 10^3/uL (1.2-3.4); Absolute Neutrophil Count 7.25 10^3/uL (1.2-6.7); Basophils % 0.4; Eosinophils % 4.3; HCT 41.5 % (36.0-46.0); HGB 13.7 g/dL (11.2-15.7); Immature Grans % 0.4; Lymphocytes % 23.5; MCH 28.5 pg (27.0-33.0); MCV 86 fL (80-95); MPV 9.5 fL (8.0-11.0); Monocytes % 7.1; Neutrophils % 64.3; Platelet Count 318 10^3/uL (130-400); RBC 4.81 10^6/uL (3.93-5.22); RDW 12.7 % (11.7-14.6); RDW-SD 39.9 fL; WBC 11.28 10^3/uL (4.4-10.8)
[2023-07-19 07:07] LABS: Anion Gap 8.9 mmol/L (3-11); BUN 6 mg/dL (7-18); C-Reactive Protein 13.11 mg/dL (0.0-0.3); CO2 27.1 mmol/L (21.0-32.0); CREATININE 0.7 mg/dL (0.55-1.02); Calcium 9.1 mg/dL (8.5-10.1); Chloride 107 mmol/L (98-107); Estimated GFR 94.15 (mL/min/1.73m2); Glucose 120 mg/dL (74-106); Potassium 3.5 mmol/L (3.5-5.1); Sodium 143 mmol/L (136-145)
[2023-07-19 07:38] LABS: Procalcitonin < 0.1 ng/mL
[2023-07-19] MEDS: Losartan 25 MG TAB PO (07:59)
[2023-07-19] MEDS: Citalopram 20 MG TAB PO (07:59)
[2023-07-19] MEDS: Pantoprazole 40 MG TABCR PO (07:59)
[2023-07-19] MEDS: Metoprolol CR 50 MG TABCR PO (07:59)
[2023-07-19 08:00] VITALS: BP 156/74; PULSE 70; RESP 16; TEMP 36.1; O2SAT 91
--- NOTE | 2023-07-19 10:41 | PDOC.CMIN ---
Date of service: 07/19/23 Time of Service: 10:41 Care Management Initial Assmt Initial Assessment REASON FOR HOSPITALIZATION:: Diverticulitis PREVIOUS FUNCTIONAL STATUS/SOCIAL/FAMILY SUPPORTS:: Rocio is and resides with her adult son in [place], [place]. She is employed as a private caregiver for two individuals. Rocio drives and is independent with her ADLs at baseline. She has the support of her son and 2 sisters who live locally. CURRENT FUNCTIONAL STATUS:: Rocio is sitting in a chair when CM comes to meet with her. She is pleasant and easily engages in conversation. She states she has not seen the surgeon yet today and remains NPO. She is feeling a little bit better and hopes to be able to eat something soon. ADVANCE DIRECTIVES:: Patient states she has a Living Will but she has been unable to locate it. Her who is now is named as HCA in the missing Living Will. Patient accepts an AD form from CM for completion at a later time. Has patient been provided with info about the portal/API?: Yes Did the patient sign up for the portal?: No CODE STATUS:: Full Code INSURANCE COVERAGE / FINANCIAL ISSUES:: [employer] MCR Replacement Plan CURRENT HOME/COMMUNITY SERVICES/EQUIPMENT:: CPAP machine. PRIMARY CARE PHYSICIAN:: NANCI Schwartz POTENTIAL DISCHARGE NEEDS:: Follow up appointments with PCP, surgeon and discharge plan of care. PATIENT/FAMILY EDUCATION NEEDS:: Review of discharge instructions including recommended diet, medications, limitations and follow up plan of care; discuss Ask Me Three and self management. ANTICIPATED BARRIERS TO DISCHARGE:: None. TRANSPORTATION:: Via private vehicle with family. PLAN:: Rocio will be discharged home with no services when medically cleared by provider. She will follow up with her PCP, [facility] and plan of care as instructed. She will be transported home by either her son or sister via private vehicle when ready. CM will continue to follow. PFSH All Active Problems (Updated 07/18/23 @ 12:43 by Angi Evans DO) Acute diverticulitis (Acute) Diverticulitis (Chronic) Abdominal pain (Acute) Fall (Acute) Medical History (Updated 07/18/23 @ 12:43 by Angi Evans DO) Adjustment disorder Anxiety Breast cyst Right Depression GERD (gastroesophageal reflux disease) High blood pressure Hyperlipemia Mild obstructive sleep apnea Neuropathy pt denies PTSD (post-traumatic stress disorder) Per pt. states nothing currently that is a potential trigger at this time. Surgical History (Updated 02/23/23 @ 11:02 by Damien Narvaez MD) History of cataract surgery History of cholecystectomy History of hysterectomy Hx of appendectomy Hx of removal of cyst R groin - multi cyst removal Hx of tonsillectomy Family History (Updated 10/13/22 @ 12:45 by Mckayla Reyes) Mother Type 2 diabetes mellitus Breast cancer Father Heart disease Colon cancer Kidney failure Brother Brain tumor Cerebral artery occlusion with cerebral infarction Sister Coronary artery disease Paternal Aunt Diabetes Social History (Updated 10/13/22 @ 12:46 by Mckayla Reyes) Smoking/Tobacco Use Status: Never Smoking risk assessment performed?: Yes Alcohol Intake: current Alcohol Intake frequency: holidays/special occasions only Drug use: Never Substance use type: does not use Housing: house What is your relationship status?: Panel score (0-1 are the most socially isolated patients): 0 Do you feel safe at home: Yes Do you feel safe in your relationship?: Yes
[2023-07-19 13:25] LABS: C Diff PCR Negative (Negative)
[2023-07-19] MEDS: Enoxaparin 40 MG/0.4 ML SYR SC (13:45)
--- NOTE | 2023-07-19 13:46 | RESPIRATORY ---
RT discussed with patient concerning history of Mild Sleep Apnea listed in her chart. Patient does have a home unit she uses at night but has no one who's able to bring the device in for her. RT explained that she could use hospital unit but it may not feel like her personal device. RT offered hospital unit for patient to use during her stay but patient refused. She stated if she was going to be here for a week, then she would use hospital device.
[2023-07-19 15:22] VITALS: BP 159/75; PULSE 65; RESP 18; TEMP 36.8; O2SAT 91
--- NOTE | 2023-07-19 15:39 | PGE_ITS ---
Date of Service Date of service: 07/19/23 Time of Service: 15:39 Assessment and Plan Assessment and plan (1) Acute diverticulitis: Status: Acute (2) Depression: (3) GERD (gastroesophageal reflux disease): (4) High blood pressure: (5) Hyperlipemia: (6) Mild obstructive sleep apnea: (7) Neuropathy: Subjective Subjective Interval history since last seen: Pt is doing well. no headaches. No CP or SOB. no productive cough. no dysuria. no leg pain or swelling. Objective Last Vital Signs Temp 36.8 C 07/19/23 15:22 Pulse 65 07/19/23 15:22 Resp 18 07/19/23 15:22 BP 159/75 H 07/19/23 15:22 Pulse Ox 91 L 07/19/23 15:22 Laboratory Results - last 24 hr 07/19/23 07/19/23 07/19/23 06:16 06:16 06:16 WBC 11.28 H RBC 4.81 Hgb 13.7 Hct 41.5 MCV 86 MCH 28.5 MCHC 33.0 RDW 12.7 Plt Count 318 MPV 9.5 Immature Gran % 0.4 Neutrophils % 64.3 Lymphocytes % 23.5 Monocytes % 7.1 Eosinophils % 4.3 Basophils % 0.4 Nucleated RBC % 0.0 Absolute Neutrophils 7.25 H Absolute Lymphocytes 2.65 Absolute Monocytes 0.80 Absolute Eosinophils 0.49 Absolute Basophils 0.05 Sodium 143 Potassium 3.5 Chloride 107 Carbon Dioxide 27.1 Anion Gap 8.9 BUN 6 L Creatinine 0.7 Est GFR (CKD-EPI 2020) 94.15 Glucose 120 H Calcium 9.1 C-Reactive Protein 13.11 H Procalcitonin < 0.1 Stl C.difficile Tox PCR 07/19/23 11:45 WBC RBC Hgb Hct MCV MCH MCHC RDW Plt Count MPV Immature Gran % Neutrophils % Lymphocytes % Monocytes % Eosinophils % Basophils % Nucleated RBC % Absolute Neutrophils Absolute Lymphocytes Absolute Monocytes Absolute Eosinophils Absolute Basophils Sodium Potassium Chloride Carbon Dioxide Anion Gap BUN Creatinine Est GFR (CKD-EPI 2020) Glucose Calcium C-Reactive Protein Procalcitonin Stl C.difficile Tox PCR Negative Time Spent with Patient Time Spent with Patient: 25-34 minutes Time was spent: preparing to see the patient(eg.review tests), obtaining and/or reviewing separately otained hiistory, ordering medications,tests, procedures, referring, communicating with other health respiratory care assistant, indepentently interpreting results, counseling the patient and care coordination
[2023-07-19] MEDS: traZODone 50 MG TAB PO (21:19)
[2023-07-19 23:11] VITALS: BP 157/81; PULSE 57; RESP 18; TEMP 36.6; O2SAT 92
[2023-07-20] MEDS: PIPERACILLIN/TAZO 3.375 GM in Normal Saline 50 ML IVPB ×2 (00:30→06:11)
[2023-07-20 06:51] VITALS: BP 164/88; PULSE 71; RESP 18; TEMP 36.7; O2SAT 94
[2023-07-20 07:26] VITALS: BP 153/88; PULSE 72; RESP 17; TEMP 36.7; O2SAT 94
[2023-07-20] MEDS: Losartan 25 MG TAB PO (07:36)
[2023-07-20] MEDS: Citalopram 20 MG TAB PO (07:36)
[2023-07-20] MEDS: Normal Saline Flush 10 ML SYR IVP (07:37)
[2023-07-20] MEDS: Metoprolol CR 50 MG TABCR PO (07:37)
[2023-07-20] MEDS: Pantoprazole 40 MG TABCR PO (07:37)
--- NOTE | 2023-07-20 08:46 | PDOC.CMPRO ---
Date of service: 07/20/23 Time of Service: 08:46 Care Management Progress Note Progress Note Text Progress Note Text: S/O: Rocio remains inpatient, and is feeling much better today per MD diet is being advanced and monitored, abx switched to orals; repeat labs tomorrow. CM continues to follow. A: 67 year old female admitted to [facility] 07/18/23 for Diverticultitis P: Rocio will be discharged home with no services when medically cleared by provider.? She will follow up with her PCP, [facility] and plan of care as instructed.? She will be transported home by either her son or sister via private vehicle when ready.? CM will continue to follow.
--- NOTE | 2023-07-20 13:52 | W.PM.PROGNOT ---
Date of Service Date of service: 07/20/23 Time of Service: 13:52 Assessment and Plan Assessment and plan (1) Acute diverticulitis: Status: Acute Assessment and plan: I will advance her diet this morning, and repeat a CBC tomorrow. We will also stop the intravenous antibiotics, and switch over to an enteral regimen today. Subjective Subjective Interval history since last seen: She says she is feeling much better today. Her appetite is increased. She is having far less abdominal discomfort than yesterday. She had no bowel movements and she has been with this. Exam GI Other: Her abdomen is soft and nondistended. She has minimal tenderness in the left hemiabdomen. Objective Last Vital Signs Temp 98.1 F 07/20/23 07:26 Pulse 72 07/20/23 07:26 Resp 17 07/20/23 07:26 BP 153/88 H 07/20/23 07:26 Pulse Ox 94 07/20/23 07:26 Time Spent with Patient Time Spent with Patient: 35-49 minutes Time was spent: preparing to see the patient(eg.review tests), indepentently interpreting results, counseling the patient and care coordination
[2023-07-20 15:16] VITALS: BP 165/85; PULSE 71; RESP 16; TEMP 37.9; O2SAT 94
[2023-07-20] MEDS: Acetaminophen 500 MG TAB 1000 MG PO ×2 (15:31→21:24)
[2023-07-20] MEDS: traZODone 50 MG TAB PO (21:23)
[2023-07-20] MEDS: Amoxicillin 875/Clav. 125 TAB PO (21:24)
[2023-07-20 23:41] VITALS: BP 174/91; PULSE 69; RESP 16; TEMP 36.7; O2SAT 94
[2023-07-21 05:46] VITALS: BP 163/91; PULSE 75; RESP 16; TEMP 36.9; O2SAT 91
[2023-07-21 07:11] LABS: HCT 44.2 % (36.0-46.0); HGB 14.8 g/dL (11.2-15.7); MCH 28.7 pg (27.0-33.0); MCHC 33.5 % (32.0-36.0); MCV 86 fL (80-95); MPV 9.4 fL (8.0-11.0); Platelet Count 373 10^3/uL (130-400); RBC 5.15 10^6/uL (3.93-5.22); RDW 12.6 % (11.7-14.6); RDW-SD 39.6 fL; WBC 12.92 10^3/uL (4.4-10.8)
[2023-07-21 07:22] VITALS: BP 182/96; PULSE 75; RESP 17; TEMP 36.9; O2SAT 93
[2023-07-21] MEDS: Citalopram 20 MG TAB PO (07:43)
[2023-07-21] MEDS: Losartan 25 MG TAB PO (07:43)
[2023-07-21] MEDS: Metoprolol CR 50 MG TABCR PO (07:43)
[2023-07-21] MEDS: Pantoprazole 40 MG TABCR PO (07:43)
[2023-07-21] MEDS: Amoxicillin 875/Clav. 125 TAB PO (07:43)
[2023-07-21 10:12] VITALS: BP 164/89
[2023-07-21 11:15] VITALS: BP 163/80; PULSE 66; RESP 17; TEMP 37.3; O2SAT 94
[2023-07-21] MEDS: Acetaminophen 500 MG TAB 1000 MG PO (13:44)
[2023-07-21] MEDS: Enoxaparin 40 MG/0.4 ML SYR SC (13:45)
--- NOTE | 2023-07-21 14:29 | W.PM.PROGNOT ---
Date of Service Date of service: 07/21/23 Time of Service: 14:30 Assessment and Plan Assessment and plan (1) Acute diverticulitis: Status: Acute Assessment and plan: DC home today soft diet transition to high-fiber diet in 2 weeks time. Recommend she start a fiber supplement such as Metamucil or Citrucel 4 days of Augmentin F/u in 2 wks time Subjective Subjective Interval history since last seen: Pt is doing well. no headaches. No CP or SOB. no productive cough. no dysuria. no leg pain or swelling. She is tolerating a regular diet. She is not having any abdominal pain. She is having stools, she has had 3-4 so far today. They are mostly liquid. No blood. Exam Const Other: No thrush or mouth pain lungs are clear to auscultation. No cough Heart is regular rate and rhythm abdomen is soft and nontender Lower extremities show no clubbing cyanosis or edema Objective Last Vital Signs Temp 37.3 C 07/21/23 11:15 Pulse 66 07/21/23 11:15 Resp 17 07/21/23 11:15 BP 163/80 H 07/21/23 11:15 Pulse Ox 94 07/21/23 11:15 Laboratory Results - last 24 hr 07/21/23 05:55 WBC 12.92 H RBC 5.15 Hgb 14.8 Hct 44.2 MCV 86 MCH 28.7 MCHC 33.5 RDW 12.6 Plt Count 373 MPV 9.4 Time Spent with Patient Time Spent with Patient: 35-49 minutes Time was spent: preparing to see the patient(eg.review tests), obtaining and/or reviewing separately otained hiistory, ordering medications,tests, procedures, referring, communicating with other health medicare contact specialist, indepentently interpreting results, counseling the patient and care coordination
--- NOTE | 2023-07-21 14:34 | DSE_ITS ---
Date of service: 07/21/23 Time of Service: 14:34 DS: Diagnosis Discharge Diagnosis (1) Acute diverticulitis: Status: Acute Discharge Plan Disposition Patient Disposition: Home Condition: Improving Discharge Details Reason For Visit: Diverticulitis Admit Date/Time: 07/18/23 12:31 Admit Provider: Angi Evans Attending Provider: Angi Evans Primary Care Provider: Carol Salazarlene Hospital Course Hospital Course: Patient was admitted on 07/18 through the ED with acute diverticulitis. She had failed outpatient conservative medical management with Flagyl and Cipro. She was admitted to [facility] and started on IV Zosyn with bowel rest. She has done well. Today she is afebrile. She has no abdominal pain. She is tolerating regular diet. She is moving her bowels without straining. Her WBC and CRP is down to normal. She has no signs of UTI/pneumonia/blood clots or other nosocomial infections or complications. She will be discharged home on 7 days of Augmentin. I will see her in clinic in follow-up. If she continues to have abdominal pain/rectal bleeding/fever or chills or nausea vomiting she should return to the ER. yogurt daily while on antibiotics. Patient understood all and discharged in stable and satisfactory condition. Home Meds and New Rx's Prescriptions: Continued losartan 25 mg tablet 25 mg PO DAILY fluticasone propion-salmeterol [Advair Diskus] 250-50 mcg/dose blister with device 1 inh inhalation BID Saline Nasal 0.65 % Aerosol,Docena 2 spray INTRANASAL PRN PRN prochlorperazine maleate [Compazine] 5 mg tablet 5 mg PO TID PRNQty: 10 0RF oxycodone 5 mg capsule 2.5 mg PO Q8H PRNQty: 5 0RF fluconazole [Diflucan] 150 mg tablet 150 mg PO ONCE Qty: 1 0RF Rx Instructions: as a single dose citalopram 40 mg Tablet 40 mg PO DAILY trazodone 50 mg tablet 50 - 100 mg PO HS PRN Patient Comments: TAKE 1 TO 2 TABLETS BY MOUTH ONCE DAILY AT BEDTIME NEEDED metoprolol succinate 50 mg tablet extended release 24 hr 50 mg PO DAILY Patient Comments: TAKE 1 TABLET BY MOUTH ONCE DAILY DIRECTED colesevelam [WelChol] 625 mg Tablet 625 mg PO DAILY PRN pantoprazole 40 mg Tablet,Delayed Release (Dr/Ec) 40 mg PO DAILY hydrochlorothiazide 25 mg Tablet 25 mg PO DAILY lorazepam 1 mg tablet 0.5 mg PO DAILY PRN Patient Comments: TAKE 1 2 (ONE HALF) TABLET BY MOUTH ONCE DAILY NEEDED albuterol sulfate 90 mcg/actuation Hfa Aerosol Inhaler 1 puff INHALATION Q4H PRN gabapentin 100 mg Tablet 100 mg PO DAILY PRN cholecalciferol (vitamin D3) [Vitamin D3] 50 mcg (2,000 unit) capsule 50 mcg PO DAILY Patient Comments: TAKE 1 CAPSULE BY MOUTH ONCE DAILY ondansetron HCl 4 mg tablet 4 mg PO DAILY Discontinued metronidazole 250 mg tablet 250 mg PO BID ciprofloxacin HCl 250 mg tablet 250 mg PO DAILY Patient Comments: TAKE 1 TABLET BY MOUTH TWICE DAILY FOR 5 DAYS Discharge Instructions Additional Instructions: Keep an ice bag on the incision. 20 minutes on and 20 minutes off. Ice keeps the swelling down and swelling causes pain. Make sure you wrap the ice pack in a towel and don't apply directly to the skin. -No driving for 24 days or of you are taking narcotic pain medications. -If you have mercy or sutures in place, they will be removed at your clinic appointment in 7-10 days. [facility]: [phone] 08/06/23 @ 10am -yogurt/kefire/kombucha daily while on antibiotics. -soft diet: No beef/pork raw vegetables x2 -week. Cooked vegetables are fine. see below. after 2 weeks, slowly transition to high fiber diet. Metamucil daily to avoid constipation -no straining to move bowels -Use Miralax as needed as a rescur agent, if you find you are constipated. -You may find that your appetite is smaller. Eat 3-6 small meals throughout the day. It is important to drink lots of water after surgery, 6-10 glasses a day. -If you were given an incentive spirometry (breathing uke driver?), continue to do this 10x/hour while awake. -We do want you up walking, at least 5-6 times per day. This is very important to prevent pneumonia and blood clots. You can climb stairs, take them slowly. -You may find that you are very tired after surgery- this is normal. -please do not smoke for a minimum of 72 hours after surgery. Gastrointestinal Soft Diet Overview Overview What is a gastrointestinal soft diet? This diet is soft in texture, low in fiber, and easy to digest. The goal is to decrease) ?food in the bowel that may cause and discomfort. This diet is often used after abdominal surgery or as a transitional diet after flares. Meats & Meat Substitutes ?? Foods Allowed: Chicken, turkey, fish, tender cuts of beef and pork, ground meats, eggs, creamy nut butters, tofu, skinless hot dogs, sausage patties without whole spices ?? Foods to Avoid : Tough, fibrous meats with gristle, meat with casings (hot dogs, sausage, kielbasa), lunch meats with whole spices, shellfish, beans, chunky peanut butter, nuts Fruits and Juices ?? Foods Allowed: Fruit juices without pulp, banana, avocado, applesauce, canned peaches and pears, cooked fruit without the skin/seeds.? Ground or over- cooked fruits.? Fruits ground finely in a ?smoothie?. ?? Foods to Avoid: Juices with pulp, fresh fruit (except banana and avocado), dried fruits, canned fruit cocktail and pineapple, coconut, frozen/thawed berries Vegetables ?? Foods Allowed: Well-cooked or canned vegetables, potatoes without skin, tomato sauces, vegetable juice ?? Foods to Avoid: Raw vegetables, all corn, all mushrooms, stewed tomatoes, potato skins, stir-trevizo vegetables, sauerkraut, pickles, olives, all dried beans, peas, and legumes Cereals and Grains ?? Foods Allowed: Low- fiber dry or cooked cereals (less than 2 grams fiber per serving), white rice, pasta, macaroni, or noodles ?? Foods to Avoid: Cereals with nuts, berries, dried fruits, whole grain cereals, bran cereals, granola, brown or wild rice, whole grain pasta Breads and Crackers ?? Foods Allowed: White/refined breads and rolls, plain bagel, toast, plain crackers, kamron crackers ?? Foods to Avoid: Whole grain breads- including white whole grain; bread/ rolls with raisins, nuts or seeds, multi-grain crackers Dairy ?? Foods Allowed: Milk, cheese, yogurt, milkshakes, pudding, ice cream, cottage cheese, sherbet ;?lactose free or low lactose versions if lactose intolerant ?? Foods to Avoid: Dairy product mixed with fresh fruit (except banana), berries, nuts or seeds Desserts ?? Foods Allowed: Plain cake, pudding, custard, ice cream, sherbet, gelatin, fruit whips ?? Foods to Avoid: Any dessert that contains nuts, dried fruits, coconut, or fruits with seeds Herbs and Spices ?? Foods Allowed: All ground spices or herbs, salt ?? Foods to Avoid: Whole spices such as peppercorns, whole cloves, anise seeds, celery seeds, vianca, korin seeds, and fresh herbs Snacks/Other Foods ?? Foods Allowed: Sugar, honey, jelly, mayonnaise, mustard, soy sauce, oil, butter, margarine, marshmallows, cookies without dried fruits or nuts, snack chips and pretzels using refined flours ?? Foods to Avoid: Carbonated beverages, jams or jellies with seeds, popcorn After several weeks, slowly start to reintroduce the ?Foods to Avoid? back into your diet unless your doctor has told you otherwise. Try a small portion of one of these foods each day. If it does not bother you within 24 hours, it can be added to your diet. Continue to add new foods in this way. Some people may continue to have food sensitivities and may need to continue to avoid certain foods. If you cannot tolerate a food, avoid that food for a few weeks before you try it again. Guidelines when eating 1.? Avoid any food that you cannot tolerate or that causes gas, bloating, or stomach pain. 2.? Make time for your meals. Do not eat while you are in a hurry. Cut your food into small pieces. Chew each bite to a mashed potato consistency. Do not eat when you cannot concentrate on chewing well. 3.? Drink at least 6-8 cups of fluid per day? Fluids include: water, coffee, tea, juice, milk, popsicles, soups, gelatin, pudding, ice cream, sherbet, and yogurt. In addition, choose caffeine-free beverages more often, especially if you are having?diarrhea. 4.? A daily multivitamin may be recommended if diet is limited in amounts or variety of foods. Do not take any herbal supplements without first checking with your doctor. Activity:: see above Equipment/Supplies:: No Equipment Needed Diet:: see above DS: Summary Time Spent with Patient providing and/or coordinating discharge services: Less than 30 minutes Status at Discharge Functional status at discharge: independent ambulation Overall status at discharge: patient is progressing back to baseline Mental Status: mental status grossly normal Speech and Movement: speech and movement normal Mood: congruent mood Affect: normal affect Exam Psych Mental Status: mental status grossly normal Speech and Movement: speech and movement normal Mood: congruent mood Affect: normal affect DS: Data Vitals/I&O Vitals and I&O: Vital Signs Temperature 37.3 C 07/21/23 11:15 Temperature Source Tympanic 07/21/23 11:15 Pulse 66 07/21/23 11:15 Pulse Rhythm Regular 07/20/23 20:36 Respiratory Rate 17 07/21/23 11:15 Respiratory Effort Normal, Non-Labored 07/20/23 20:36 Respiratory Depth Normal 07/20/23 20:36 Respiratory Pattern Normal 07/20/23 20:36 Blood Pressure 163/80 H 07/21/23 11:15 Blood Pressure Mean 93 07/18/23 12:30 Blood Pressure Position Sitting 07/18/23 09:58 Pulse Oximetry 94 07/21/23 11:15 Oxygen Delivery Method Room Air 07/21/23 11:15 Oxygen Flow Rate 0 07/21/23 11:15 Pain Level 0 07/21/23 13:44 Comment Pt. denies pain at this time. 07/21/23 11:18 Intake & Output 07/20/23 07/21/23 07/21/23 23:59 11:59 23:59 Intake Total 550 / 550 Balance 550 / 550 Intake: Oral 550 / 550 Other: Urine Appearance Clear Comment pt uses bathroom independently Stool Size Moderate Large Stool Characteristics Liquid Soft Voiding Methods Diaper Toilet Incontinent Data Completed and Pending Labs on day of discharge: Labs from last 24 hours 07/21/23 05:55 WBC 12.92 H RBC 5.15 Hgb 14.8 Hct 44.2 MCV 86 MCH 28.7 MCHC 33.5 RDW 12.6 Plt Count 373 MPV 9.4 Preliminary micro results at discharge 07/18/23 11:10 Blood Culture - Preliminary Blood NO GROWTH 72 HOURS 07/18/23 10:30 Blood Culture - Preliminary Blood NO GROWTH 72 HOURS PFSH All Active Problems (Updated 07/18/23 @ 12:43 by Angi Evans DO) Acute diverticulitis (Acute) Diverticulitis (Chronic) Abdominal pain (Acute) Fall (Acute) Medical History (Updated 07/18/23 @ 12:43 by Angi Evans DO) Adjustment disorder Anxiety Breast cyst Right Depression GERD (gastroesophageal reflux disease) High blood pressure Hyperlipemia Mild obstructive sleep apnea Neuropathy pt denies PTSD (post-traumatic stress disorder) Per pt. states nothing currently that is a potential trigger at this time. Surgical History (Updated 02/23/23 @ 11:02 by Damien Narvaez MD) History of cataract surgery History of cholecystectomy History of hysterectomy Hx of appendectomy Hx of removal of cyst R groin - multi cyst removal Hx of tonsillectomy Family History (Updated 10/13/22 @ 12:45 by Mckayla Reyes) Mother Type 2 diabetes mellitus Breast cancer Father Heart disease Colon cancer Kidney failure Brother Brain tumor Cerebral artery occlusion with cerebral infarction Sister Coronary artery disease Paternal Aunt Diabetes Social History (Updated 10/13/22 @ 12:46 by Mckayla Reyes) Smoking/Tobacco Use Status: Never Smoking risk assessment performed?: Yes Alcohol Intake: current Alcohol Intake frequency: holidays/special occasions only Drug use: Never Substance use type: does not use Housing: house What is your relationship status?: Panel score (0-1 are the most socially isolated patients): 0 Do you feel safe at home: Yes Do you feel safe in your relationship?: Yes Time Spent with Patient Time Spent with Patient: <45 minutes Time was spent: preparing to see the patient(eg.review tests), obtaining and/or reviewing separately otained hiistory, ordering medications,tests, procedures, referring, communicating with other health career consultant, indepentently interpreting results, counseling the patient and care coordination
[2023-07-21 15:10] VITALS: BP 164/84; PULSE 76; RESP 18; TEMP 37.3; O2SAT 95
--- NOTE | 2023-07-21 16:31 | PDOC.CMDIS ---
Date of service: 07/21/23 Time of Service: 16:31 LACE Index Scoring Tool Questions: Length of Stay (in days): 3 Was the patient admitted via the E.D.?: Yes E.D. Visits: 0 Answers: Total Score: 6 Risk of Readmission: Low Risk Care Management Discharge Plan Reason for Hospitalization: Diverticulitis Discharge Plan: Rocio will return home with no additional services, she will be discharged home on 7 days of Augmentin per MD. She will follow up with her PCP and plan of care as prescribed, and transport home via private vehicle with family. Patient/Family Education Needs: Review discharge instructions, discuss Ask Me Three.
== END 2023-07-21 16:34 | disposition home or self-care (01) | DRG 392 ==
LOC: ER 12:39 → MS 13:05
PROVIDERS: Surgery; Admitting Provider Surgery; Emergency Provider Physician Assistant; PCP Nurse Practitioner; Visit Provider Surgery
DX: K57.32 Diverticulitis of large intestine without perforation or abscess without bleeding (principal); G47.33 Obstructive sleep apnea (adult) (pediatric); I10 Essential (primary) hypertension; K21.9 Gastro-esophageal reflux disease without esophagitis; F41.9 Anxiety disorder, unspecified; F32.A Depression, unspecified; F43.20 Adjustment disorder, unspecified; G62.9 Polyneuropathy, unspecified; F43.10 Post-traumatic stress disorder, unspecified; E66.3 Overweight; Z68.34 Body mass index [BMI] 34.0-34.9, adult
CPT/HCPCS: 36415; 80048; 80053; 83690; 84145; 85027; 87040; 87493; 96365; 96367; 96375; 99222; 99231; 99238; 99285; J1650; 74177; 81003; 83605; 83735; 85025; 86140; J0131; J0780; J2270; J2543; J3490

== ENCOUNTER → 2023-08-06 09:47 | Outpatient (BNVA) | payer MEDICARE, SELFPAY | PROVIDERS: PCP Nurse Practitioner; Referring Provider Nurse Practitioner; Visit Provider Surgery | DX: K57.92 Diverticulitis of intestine, part unspecified, without perforation or abscess without bleeding (principal); K21.9 Gastro-esophageal reflux disease without esophagitis | CPT/HCPCS: 99213 ==

== ENCOUNTER 2023-08-09 07:08 | Emergency (ER) | payer MEDICARE, SELFPAY ==
[2023-08-09 07:16] VITALS: BP 176/69; PULSE 86; RESP 24; TEMP 36.8; O2SAT 94
--- NOTE | 2023-08-09 07:17 | W.ED.GENAD ---
Discharge Plan Discharge Details Chief Complaint: Abd Prob Primary Care Provider: Sushma Salazar ED Provider: Hector Dinero Home Meds and New Rx's Prescriptions: No Action polyethylene glycol 3350 17 gram/dose powder 238 g PO ONCE Qty: 238 0RF Rx Instructions: take per colonoscopy instructions bisacodyl [Dulcolax (bisacodyl)] 5 mg tablet,delayed release (DR/EC) 5 mg PO ONCE Qty: 4 0RF Rx Instructions: take per colonoscopy instructions losartan 25 mg tablet 25 mg PO DAILY citalopram 40 mg Tablet 40 mg PO DAILY trazodone 50 mg tablet 50 - 100 mg PO HS PRN Patient Comments: TAKE 1 TO 2 TABLETS BY MOUTH ONCE DAILY AT BEDTIME NEEDED metoprolol succinate 50 mg tablet extended release 24 hr 50 mg PO DAILY Patient Comments: TAKE 1 TABLET BY MOUTH ONCE DAILY DIRECTED pantoprazole 40 mg Tablet,Delayed Release (Dr/Ec) 40 mg PO DAILY hydrochlorothiazide 25 mg Tablet 25 mg PO DAILY lorazepam 1 mg tablet 0.5 mg PO DAILY PRN Patient Comments: TAKE 1 2 (ONE HALF) TABLET BY MOUTH ONCE DAILY NEEDED gabapentin 100 mg Tablet 100 mg PO DAILY PRN Patient Comments: no longer taking cholecalciferol (vitamin D3) [Vitamin D3] 50 mcg (2,000 unit) capsule 50 mcg PO DAILY Patient Comments: TAKE 1 CAPSULE BY MOUTH ONCE DAILY ondansetron HCl 4 mg tablet 4 mg PO DAILY Medical Decision Making This is an overall well-appearing normothermic and not tachycardic 57-year-old female with known history of diverticulitis status post recent treatment with recurrent left-sided abdominal pain with multiple episodes of emesis concerning for recurrent diverticulitis for which patient will undergo CT abdomen pelvis. Patient is not septic appearing and her vitals are not consistent with SIRS criteria so I did not order a lactate nor treat empirically with IV antibiotics nor draw blood cultures. No pain out of proportion to suggest necrotizing soft tissue infection. Patient is not recently to suggest increased risk for splenic arterial aneurysm. No rash to abdomen to suggest zoster. No chest pain to suggest ACS. No shortness of breath to suggest PE. No cough nor fevers to suggest pneumonia. No dysuria no frequency to suggest urinary tract infection. No abnormal vaginal discharge to suggest PID. Given left upper quadrant tenderness doubt ovarian torsion. Will obtain CBC comprehensive metabolic panel and reassess following 500 cc of crystalloid, ondansetron for nausea, and 50 mcg of fentanyl for pain. I signed the patient out to Dr. Ledezma. If she does not have a microperforation nor an abscess she may be appropriate for discharge with outpatient follow-up. Anticipate benefit from general surgery consultation. Chronic conditions affecting the care of the patient: Recurrent diverticulitis History obtained from an outside historian: N/A External record review: [facility] EMR Medications: Ondansetron & fentanyl Social determinants of health affecting disposition: N/A Management discussed with: Dr. Ledezma Treatment/interventions considered: N/A Response to therapies provided: N/A HPI General Date/Time Provider Initiated Documentation: 08/09/23 07:16. HPI Narrative: This is a 67-year-old female with past surgical history significant for remote appendectomy and hysterectomy and recent medical history of diverticulitis for which she was seen 10 days ago and hospitalized 4 days ago now arrived to the emergency department via private vehicle in the setting of recurrent left-sided abdominal pain radiating to her back. She reports her symptoms are reminiscent of prior episode of diverticulitis for which she finished antibiotics 7 days ago. She reports that she was awoken from sleep at midnight with pain. She vomited 3 times. She did have a regular normal bowel movement this morning. She says that her left-sided abdominal pain radiates into her back. She denies dizziness chest pain shortness of breath fevers chills dysuria and frequency. Related Data Home Medications Medication Instructions Recorded Confirmed cholecalciferol (vitamin D3) 50 50 mcg PO DAILY 03/06/21 08/09/23 mcg (2,000 unit) capsule (Vitamin D3) citalopram 40 mg tablet 40 mg PO DAILY 03/06/21 08/09/23 gabapentin 100 mg tablet 100 mg PO DAILY PRN 03/06/21 08/06/23 hydrochlorothiazide 25 mg tablet 25 mg PO DAILY 03/06/21 08/09/23 lorazepam 1 mg tablet 0.5 mg PO DAILY PRN 03/06/21 08/09/23 metoprolol succinate 50 mg 50 mg PO DAILY 03/06/21 08/09/23 tablet,extended release 24 hr pantoprazole 40 mg tablet,delayed 40 mg PO DAILY 03/06/21 08/09/23 release trazodone 50 mg tablet 50 - 100 mg PO HS PRN 03/06/21 08/09/23 losartan 25 mg tablet 25 mg PO DAILY 10/13/22 08/09/23 ondansetron HCl 4 mg tablet 4 mg PO DAILY 07/18/23 08/09/23 bisacodyl 5 mg tablet,delayed 5 mg PO ONCE colonscopy bowel prep 08/06/23 08/09/23 release (Dulcolax (bisacodyl)) #4 tabs polyethylene glycol 3350 17 238 g PO ONCE colonoscopy prep 08/06/23 08/09/23 gram/dose oral powder #238 grams Previous Rx's Medication Instructions Recorded bisacodyl 5 mg tablet,delayed 5 mg PO ONCE colonscopy bowel prep 08/06/23 release (Dulcolax (bisacodyl)) #4 tabs polyethylene glycol 3350 17 238 g PO ONCE colonoscopy prep 08/06/23 gram/dose oral powder #238 grams Allergies Allergy/AdvReac Type Severity Reaction Status Date / Time No Known Allergies Allergy Unverified 08/09/23 07:18 General LALA: 3 PFSH All Active Problems Acute diverticulitis (Acute) Diverticulitis (Chronic) Abdominal pain (Acute) Fall (Acute) Medical History Adjustment disorder Anxiety Breast cyst Right Depression GERD (gastroesophageal reflux disease) High blood pressure Hyperlipemia Mild obstructive sleep apnea Neuropathy pt denies PTSD (post-traumatic stress disorder) Per pt. states nothing currently that is a potential trigger at this time. Surgical History History of cataract surgery History of cholecystectomy History of hysterectomy Hx of appendectomy Hx of removal of cyst R groin - multi cyst removal Hx of tonsillectomy Family History Mother Type 2 diabetes mellitus Breast cancer Father Heart disease Colon cancer Kidney failure Brother Brain tumor Cerebral artery occlusion with cerebral infarction Sister Coronary artery disease Paternal Aunt Diabetes Social History Smoking/Tobacco Use Status: Never Smoking risk assessment performed?: Yes Alcohol Intake: current Alcohol Intake frequency: holidays/special occasions only Drug use: Never Substance use type: does not use Housing: house What is your relationship status?: Panel score (0-1 are the most socially isolated patients): 0 Do you feel safe at home: Yes Do you feel safe in your relationship?: Yes Exam Narrative Exam Narrative: General: Well-appearing in no acute distress speaking in complete sentences. Head: Normocephalic, atraumatic. Eye: . Extraocular eye movements intact. No conjunctival injection. No scleral icterus. Ear, nose, mouth, throat: Grossly normal inspection. Normal voice, handling secretions normally. Neck: Trachea midline. Cardiovascular: Well-perfused distal extremities. Regular rate and rhythm. Respiratory: Nonlabored respiration. Clear lungs bilaterally. Gastrointestinal: Nondistended abdomen. Left-sided abdominal tenderness. No rebound. No guarding. No rash to abdomen. Musculoskeletal: No edema. Moving all 4 extremities spontaneously. Skin: Normal for age and race, grossly normal temperature and turgor. No acute rash. Neurologic: Alert and appropriate, no apparent acute deficits. Psychiatric: Mood and manner are appropriate. Grooming and personal hygiene are appropriate.
--- NOTE | 2023-08-09 07:30 | DI.CT_ITS ---
Exam(s) CT ABDOMEN PELVIS W EXAM: CT ABDOMEN PELVIS W CLINICAL HISTORY: Left-sided abdominal pain history of diverticuliti. TECHNIQUE: Imaging Protocol: Axial computed tomography images with coronal and sagittal reformatted images were created and reviewed CONTRAST MATERIAL: Intravenous: Omnipaque-350 100cc Oral: None COMPARISON: CT CT ABDOMEN PELVIS W from 07/18/2023 FINDINGS: VISUALIZED LUNG BASES: No nodules nor pleural effusions evident. ABDOMEN: There is no ascites. LIVER: There are no focal hepatic lesions evident. No evidence of liver abscess and no gas within th e portal venous system, given the recent sigmoid history. No dilated intrahepatic ducts GALLBLADDER/BILIARY: Gallbladder is again noted be surgically absent. CBD is not dilated. PANCREAS: No evidence of pancreatic mass nor dilatation of the pancreatic duct. SPLEEN: Spleen is not enlarged. No obvious intrasplenic lesions. Splenic and portal veins are paten t. ADRENALS: There are no significant adrenal masses. KIDNEYS:Small benign-appearing sub cm cortical cysts noted in both kidneys. Not requiring further im aging workup. No solid renal masses. No calculi nor hydronephrosis.. ABDOMINAL AORTA: Abdominal aorta is not enlarged. LYMPH NODES:There is no retroperitoneal nor paraaortic adenopathy. ABDOMINAL WALL: No evidence of significant anterior abdominal wall nor inguinal hernia. GI: Again noted is diverticulosis of the entire colon. With respect to the previously described 3 ar eas of diverticulitis in the colon.... The involved area in the distal transverse colon exhibits significant improvement. There is also toni e improvement in the involved area in the sigmoid. However, the 3rd area which is in the descending- left colon above the iliac crest level there is still significant inflammatory change of diverticulit is with significant mural edema and pericolonic STIR fat streaking. No free air nor formed abscess a t this time evident. There is no fluid in the dependent aspect of the pelvis. PELVIS: GI: No evidence of appendicitis. LYMPH NODES: There is no intrapelvic nor inguinal adenopathy. REPRODUCTIVE: Uterus is surgically absent. No adnexal masses. URINARY BLADDER: No calculi nor obvious masses evident OSSEOUS: No fractures and no significant osseous lesions. IMPRESSION: 1. As described above, 2 of the 3 separate areas of acute diverticulitis in the colon have improved s david the prior CT scan of 07/18/2023. However, 1 of these areas which is in the descending-left colo n (above the level of the iliac crest) has not significantly improved and continues to exhibit signif icant evidence of acute diverticulitis. There is no free air nor abscess. There is no gas in the po rtal venous system and no evidence of intrahepatic abscess. 2. Again noted is evidence of previous cholecystectomy and hysterectomy. There is no evidence of bow el obstruction. 3. Other findings as above RADIATION DOSE DELIVERED: 1,256.49mGy.cm Total DLP DATA REPOSITORY: All CT scans at this facility are submitted to the National Radiology Data Registry (NRDR) Dose Index Registry (DIR) with the [employer] (ACR). RADIATION OPTIMIZATION: All CT scans at this facility use at least one of these dose optimization te chniques: automated exposure control; mA and/or kV adjustment per patient size (includes targeted exa ms where dose is matched to clinical indication); or iterative reconstruction.
[2023-08-09] MEDS: Ondansetron 4 MG/2 ML VIAL IVP (07:47)
[2023-08-09] MEDS: fentaNYL 100 MCG/2 ML VIAL 50 MCG IVP ×2 (07:47→10:20)
[2023-08-09] MEDS: Normal Saline 500 ML IV (07:47)
[2023-08-09 07:50] LABS: Abs Immature Grans 0.06 10^3/uL (0.0-0.06); Absolute Basophil Count 0.03 10^3/uL (0.0-0.2); Absolute Eosinophil Count 0.11 10^3/uL (0.0-0.7); Absolute Lymphocyte Count 1.89 10^3/uL (1.2-3.4); Absolute Monocyte Count 0.76 10^3/uL (0.1-0.8); Basophils % 0.2; Eosinophils % 0.7; HCT 46.6 % (36.0-46.0); HGB 15.4 g/dL (11.2-15.7); Immature Grans % 0.4; Lymphocytes % 12.1; MCH 28.2 pg (27.0-33.0); MCV 85 fL (80-95); MPV 9.8 fL (8.0-11.0); Monocytes % 4.9; Neutrophils % 81.7; Platelet Count 344 10^3/uL (130-400); RBC 5.47 10^6/uL (3.93-5.22); RDW 13.2 % (11.7-14.6); RDW-SD 41.1 fL; WBC 15.61 10^3/uL (4.4-10.8)
[2023-08-09 08:01] LABS: Absolute Neutrophil Count 12.75 10^3/uL (1.2-6.7)
[2023-08-09 08:11] LABS: ALT 48 U/L (14-59); AST 24 U/L (15-37); Albumin 3.9 g/dL (3.4-5.0); Alkaline Phosphatase 82 U/L (46-116); Anion Gap 10.5 mmol/L (3-11); BUN 15 mg/dL (7-18); Bilirubin, Total 0.9 mg/dL (0.2-1.0); CO2 26.5 mmol/L (21.0-32.0); CREATININE 0.8 mg/dL (0.55-1.02); Calcium 9.5 mg/dL (8.5-10.1); Chloride 101 mmol/L (98-107); Estimated GFR 80.21 (mL/min/1.73m2); Glucose 157 mg/dL (74-106); Sodium 138 mmol/L (136-145); Total Protein 7.7 g/dL (6.4-8.2)
[2023-08-09] MEDS: Normal Saline - Diluent 50 ML VIAL IJ (08:35)
[2023-08-09] MEDS: Omnipaque 350 MG/ML 100 ML BTL IJ (08:36)
[2023-08-09] MEDS: Normal Saline Flush 10 ML SYR IVP (08:36)
--- NOTE | 2023-08-09 09:04 | DI.VRAD_ITS ---
PROCEDURE INFORMATION: Exam: CT Abdomen And Pelvis With Contrast Exam date and time: 08/09/2023 8:40 AM Age: 67 years old Clinical indication: Patient HX: Left-sided abdominal pain history of diverticulitis TECHNIQUE: Imaging protocol: Computed tomography of the abdomen and pelvis with contrast. Radiation optimization: All CT scans at this facility use at least one of these dose optimization techniques: automated exposure control; mA and/or kV adjustment per patient size (includes targeted exams where dose is matched to clinical indication); or iterative reconstruction. Contrast material: OMNI 350; Contrast volume: 91 ml; Contrast route: INTRAVENOUS (IV); COMPARISON: CT ABDOMEN PELVIS W 07/18/2023 11:30 AM FINDINGS: Liver: Fatty infiltration of the liver. Gallbladder and bile ducts: The gallbladder is surgically removed Pancreas: Normal. No ductal dilation. Spleen: Normal. No splenomegaly. Adrenal glands: Normal. No mass. Kidneys and ureters: Subcentimeter cysts in both kidneys Stomach and bowel: Focal area of wall thickening and inflammatory change involving diverticuli of the descending colon. Findings consistent with diverticulitis. Appendix: No evidence of appendicitis. Intraperitoneal space: Unremarkable. No free air. No significant fluid collection. Vasculature: Unremarkable. No abdominal aortic aneurysm. Lymph nodes: Unremarkable. No enlarged lymph nodes. Urinary bladder: Unremarkable as visualized. Reproductive: Hysterectomy surgical change Bones/joints: Unremarkable. No acute fracture. Soft tissues: Unremarkable. IMPRESSION: 1. Acute diverticulitis involving the descending colon. No evidence of abscess at this time. 2. Fatty infiltration liver 3. Subcentimeter cysts in the kidneys too small to further characterize 4. Status post cholecystectomy and hysterectomy surgical change Dictated and Authenticated by: Demi Mcgee MD. Ordering:PATRICIA Young MD
--- NOTE | 2023-08-09 09:16 | W.EDPROG ---
Date of service: 08/09/23 Time of Service: 09:16 Medical Decision Making pt's ct shows acute diverticulitis, no abscess or perforation. Pt feels better, tolerating po, minimal llq tenderness. She feels well enough to go home. Did discuss case with asset protection manager surgeon Dr. Austin who recommends augmentin TID and have her f/u this week with them, return precautions given Imaging Data Radiologic Study: Attestation: I personally reviewed and interpreted this imaging study as follows: Imaging: CT Scan Radiologist's impression: IMPRESSION: 1. Acute diverticulitis involving the descending colon. No evidence of abscess at this time. 2. Fatty infiltration liver 3. Subcentimeter cysts in the kidneys too small to further characterize 4. Status post cholecystectomy and hysterectomy surgical change Sign Out Sign Out Data: Sign Out Comment: Please follow-up labs, CT, and touch base with general surgery given recent episode of diverticulitis. Last updated by Hector Dinero MD at 08/09/23 08:02 Discharge Plan Disposition Patient Disposition: Home Condition: Stable Discharge Details Clinical Impression: Diverticulitis Primary Care Provider: Sushma Salazar ED Provider: Kam Ledezma Home Meds and New Rx's Prescriptions: New amoxicillin-pot clavulanate 875-125 mg tablet 1 tab PO TID 10 Days Qty: 30 0RF ondansetron 4 mg tablet,disintegrating 4 mg PO Q8H PRN (Reason: nausea and vomiting) Qty: 30 0RF oxycodone 5 mg tablet 5 mg PO TID PRN (Reason: pain) Qty: 10 0RF Continued polyethylene glycol 3350 17 gram/dose powder 238 g PO ONCE Qty: 238 0RF Rx Instructions: take per colonoscopy instructions bisacodyl [Dulcolax (bisacodyl)] 5 mg tablet,delayed release (DR/EC) 5 mg PO ONCE Qty: 4 0RF Rx Instructions: take per colonoscopy instructions losartan 25 mg tablet 25 mg PO DAILY citalopram 40 mg Tablet 40 mg PO DAILY trazodone 50 mg tablet 50 - 100 mg PO HS PRN Patient Comments: TAKE 1 TO 2 TABLETS BY MOUTH ONCE DAILY AT BEDTIME NEEDED metoprolol succinate 50 mg tablet extended release 24 hr 50 mg PO DAILY Patient Comments: TAKE 1 TABLET BY MOUTH ONCE DAILY DIRECTED pantoprazole 40 mg Tablet,Delayed Release (Dr/Ec) 40 mg PO DAILY hydrochlorothiazide 25 mg Tablet 25 mg PO DAILY lorazepam 1 mg tablet 0.5 mg PO DAILY PRN Patient Comments: TAKE 1 2 (ONE HALF) TABLET BY MOUTH ONCE DAILY NEEDED cholecalciferol (vitamin D3) [Vitamin D3] 50 mcg (2,000 unit) capsule 50 mcg PO DAILY Patient Comments: TAKE 1 CAPSULE BY MOUTH ONCE DAILY ondansetron HCl 4 mg tablet 4 mg PO DAILY Discontinued gabapentin 100 mg Tablet 100 mg PO DAILY PRN Patient Comments: no longer taking Discharge Instructions Instructions: Diverticulitis (ED) Additional Instructions: follow up this week with general surgery, I have placed you on the follow up list to see them and if you don't hear from them by tomorrow afternoon call their office if you feel more ill, have severe worsening pain or persistent vomiting return to the emergency department Referrals: Angi Evans DO [OSTEOPATHIC DOCTOR] -
--- NOTE | 2023-08-09 09:21 | NUR.NOTE ---
Referral per Dr. Ledezma to General Surgery this week for Diverticulitis. Put the referral in the [employer] Diver's box for follow up assistance.Nursing Note:
[2023-08-09] MEDS: PIPERACILLIN/TAZO 4.5 GM in Normal Saline 100 ML IVPB (09:46)
== END 2023-08-09 10:40 | disposition home or self-care (01) ==
PROVIDERS: Emergency Medicine; Emergency Provider Emergency Medicine; PCP Nurse Practitioner
DX: K57.30 Diverticulosis of large intestine without perforation or abscess without bleeding (principal)
CPT/HCPCS: 36415; 80053; 96361; 96365; 96375; 96376; 99285; 74177; 85025; 99284; J2405; J2543; J3010; J3490

== ENCOUNTER → 2023-08-13 13:05 | Outpatient (BNVA) | payer MEDICARE, SELFPAY | PROVIDERS: PCP Nurse Practitioner; Referring Provider Nurse Practitioner; Visit Provider Surgery ==

== ENCOUNTER 2023-08-13 15:00 | Outpatient (CLI) | payer MEDICARE, SELFPAY ==
[2023-08-13 14:25] LABS: Abs Immature Grans 0.04 10^3/uL (0.0-0.06); Absolute Basophil Count 0.04 10^3/uL (0.0-0.2); Absolute Eosinophil Count 0.49 10^3/uL (0.0-0.7); Absolute Lymphocyte Count 3.56 10^3/uL (1.2-3.4); Absolute Monocyte Count 0.87 10^3/uL (0.1-0.8); Basophils % 0.4; Eosinophils % 4.6; HCT 44.5 % (36.0-46.0); HGB 14.8 g/dL (11.2-15.7); Immature Grans % 0.4; Lymphocytes % 33.3; MCH 28.5 pg (27.0-33.0); MCHC 33.3 % (32.0-36.0); MCV 86 fL (80-95); MPV 9.4 fL (8.0-11.0); Monocytes % 8.1; Neutrophils % 53.2; Platelet Count 361 10^3/uL (130-400); RDW 13.2 % (11.7-14.6); RDW-SD 40.9 fL
[2023-08-13 14:37] LABS: C-Reactive Protein 1.55 mg/dL (0.0-0.3)
== END 2023-08-13 15:01 | disposition home or self-care (01) ==
LOC: LBO 15:00
PROVIDERS: PCP Nurse Practitioner; Visit Provider Surgery
DX: D72.829 Elevated white blood cell count, unspecified; K57.92 Diverticulitis of intestine, part unspecified, without perforation or abscess without bleeding; K21.9 Gastro-esophageal reflux disease without esophagitis; I10 Essential (primary) hypertension; G62.9 Polyneuropathy, unspecified; E78.5 Hyperlipidemia, unspecified
CPT/HCPCS: 36415; 99213; 99215; 85025; 86140

== ENCOUNTER 2023-10-15 08:45 | Emergency (ER) | payer MEDICARE, SELFPAY ==
[2023-10-15 08:49] VITALS: BP 209/76; PULSE 80; RESP 18; TEMP 36.7; O2SAT 94
--- NOTE | 2023-10-15 09:00 | DI.CT_ITS ---
Exam(s) CT ABDOMEN PELVIS W EXAM: CT ABDOMEN PELVIS W CLINICAL HISTORY: llq pain, hx of recurrent diverticulitis. TECHNIQUE: Imaging Protocol: Axial computed tomography images with coronal and sagittal reformatted images were created and reviewed CONTRAST MATERIAL: Intravenous: Omnipaque 350 Contrast volume:100 ml Oral: yes / no COMPARISON: CT CT ABDOMEN PELVIS W from 08/09/2023 FINDINGS: ABDOMEN and PELVIS: Lung Bases: No acute findings. Liver: Attic steatosis.. No measurable mass. Gallbladder and biliary tract: Status post cholecystectomy. No radiodense calculus or dilation. Pancreas: Normal density. No abnormal calcifications or inflammatory process. No evidence of mass. Spleen: Normal. Kidneys: Normal size, contour and axis. No radiodense stones. No obstructive uropathy. No suspicious masses seen. Adrenal glands: No masses seen. Vasculature: Abdominal aorta non-dilated. Soft tissues: Unremarkable. Bladder: No gross wall thickening. No calculi.No focal mass. Bowel: Diverticulosis present throughout the colon. Wall thickening and surrounding stranding in the fat consistent with diverticulitis located at the junction of the descending and sigmoid colon. No perforation or abscess. Diverticulum of the transverse portion of the duodenum. No obstruction. Ap pendix normal. Peritoneal cavity: No ascites. No focal collection. Bones: Unremarkable for age. Reproductive organs: With status post hysterectomy. Lymph nodes: Unremarkable. IMPRESSION:: Diverticulitis at the junction of the descending and sigmoid colon. Findings called to Julianne Frederick of the emergency department RADIATION DOSE DELIVERED: Total DLP DATA REPOSITORY: All CT scans at this facility are submitted to the National Radiology Data Registry (NRDR) Dose Index Registry (DIR) with the [employer] (ACR). RADIATION OPTIMIZATION: All CT scans at this facility use at least one of these dose optimization te chniques: automated exposure control; mA and/or kV adjustment per patient size (includes targeted exa ms where dose is matched to clinical indication); or iterative reconstruction.
[2023-10-15 09:06] VITALS: BP 209/76; PULSE 80; RESP 18; TEMP 36.7; O2SAT 94
--- NOTE | 2023-10-15 09:23 | ED.GENADUL_ITS ---
Discharge Plan Discharge Details Chief Complaint: Abd Prob Primary Care Provider: Sushma Salazar ED Provider: Julianne Frederick Home Meds and New Rx's Prescriptions: New cefuroxime axetil 500 mg tablet 500 mg PO BID Qty: 20 0RF metronidazole 500 mg tablet 500 mg PO TID Qty: 30 0RF Saccharomyces boulardii [Florastor] 250 mg capsule 250 mg PO BID Qty: 20 0RF oxycodone 5 mg capsule 2.5 - 5 mg PO Q8H PRNQty: 10 0RF Continued polyethylene glycol 3350 17 gram/dose powder 238 g PO ONCE Qty: 238 0RF Rx Instructions: take per colonoscopy instructions bisacodyl [Dulcolax (bisacodyl)] 5 mg tablet,delayed release (DR/EC) 5 mg PO ONCE Qty: 4 0RF Rx Instructions: take per colonoscopy instructions losartan 25 mg tablet 25 mg PO DAILY citalopram 40 mg Tablet 40 mg PO DAILY trazodone 50 mg tablet 50 - 100 mg PO HS PRN Patient Comments: TAKE 1 TO 2 TABLETS BY MOUTH ONCE DAILY AT BEDTIME NEEDED metoprolol succinate 50 mg tablet extended release 24 hr 50 mg PO DAILY Patient Comments: TAKE 1 TABLET BY MOUTH ONCE DAILY DIRECTED pantoprazole 40 mg Tablet,Delayed Release (Dr/Ec) 40 mg PO DAILY hydrochlorothiazide 25 mg Tablet 25 mg PO DAILY Patient Comments: doesn't always take this lorazepam 1 mg tablet 0.5 mg PO DAILY PRN Patient Comments: TAKE 1 2 (ONE HALF) TABLET BY MOUTH ONCE DAILY NEEDED cholecalciferol (vitamin D3) [Vitamin D3] 50 mcg (2,000 unit) capsule 50 mcg PO DAILY Patient Comments: TAKE 1 CAPSULE BY MOUTH ONCE DAILY Discharge Instructions Additional Instructions: Take antibiotics as prescribed Call Dr. Evans for follow-up and follow-up for your colonoscopy as scheduled Take Tylenol 650 mg every 4 hours, do not exceed 3 g of Tylenol daily Take the oxycodone sparingly as this medication is very addictive and you should not operate a vehicle for 8 hours after taking this I have written you for Florastor, this is a probiotic as antibiotics can deplete your normal gut bacteria Try to consume a low residue diet for the next several days Return immediately with fever, worsening pain, although it would likely take 2 to 3 days for your pain to improve Recommend having prunes or Metamucil to help you with bowel movements as oxycodone 10 cause some constipation Referrals: Sushma Salazar [Primary Care Provider] - Medical Decision Making 68-year-old female with recurrent diverticulitis presents with report of left lower quadrant pain, CBC CMP and diagnostic labs were ordered, CBC with mild leukocytosis 11,000, diverticulosis present throughout the entire colon, wall thickening and surrounding fat stranding consistent with diverticulitis was noted at the junction of the descending and sigmoid:, No evidence of perforation or abscess per radiology interpretation and discussion Patient's pain is nicely controlled on reassessment and she feels comfortable discharge home, as she was treated for diverticulitis approximately a month and a half ago, will use cefuroxime and Flagyl and provide a 10-day course, will also place patient on Florastor Case was discussed with Dr. Arreola and he does recommend close outpatient follow- up with patient's surgeon, Dr. Evans, he had no additional recommendations at this time and I think patient is stable enough to be discharged home Stable to tolerate p.o. Oxycodone wa supplied , risk of addiction reviewed, return precautions reviewed and patient expressed understanding HPI General Date/Time Provider Initiated Documentation: 10/15/23 08:46 . HPI Narrative: This 68-year-old female presents with report of abdominal pain, history of diverticulitis recurrent, denies any chest pain, shortness of breath, nausea, vomiting. Feels similarly to her prior episodes of diverticulitis, last was at the beginning of July. Has had consultations with Dr. Evans previously. States the pain radiates through to her back, denies any urinary symptoms. Moving bowels within normal limits per patient. Related Data Home Medications Medication Instructions Recorded Confirmed cholecalciferol (vitamin D3) 50 50 mcg PO DAILY 03/06/21 10/15/23 mcg (2,000 unit) capsule (Vitamin D3) citalopram 40 mg tablet 40 mg PO DAILY 03/06/21 10/15/23 hydrochlorothiazide 25 mg tablet 25 mg PO DAILY 03/06/21 10/15/23 lorazepam 1 mg tablet 0.5 mg PO DAILY PRN 03/06/21 10/15/23 metoprolol succinate 50 mg 50 mg PO DAILY 03/06/21 10/15/23 tablet,extended release 24 hr pantoprazole 40 mg tablet,delayed 40 mg PO DAILY 03/06/21 10/15/23 release trazodone 50 mg tablet 50 - 100 mg PO HS PRN 03/06/21 10/15/23 losartan 25 mg tablet 25 mg PO DAILY 10/13/22 10/15/23 bisacodyl 5 mg tablet,delayed 5 mg PO ONCE colonscopy bowel prep 08/06/23 10/15/23 release (Dulcolax (bisacodyl)) #4 tabs polyethylene glycol 3350 17 238 g PO ONCE colonoscopy prep 08/06/23 10/15/23 gram/dose oral powder #238 grams Saccharomyces boulardii 250 mg 250 mg PO BID #20 caps 10/15/23 capsule (Florastor) cefuroxime axetil 500 mg tablet 500 mg PO BID #20 tabs 10/15/23 metronidazole 500 mg tablet 500 mg PO TID #30 tabs 10/15/23 oxycodone 5 mg capsule 2.5 - 5 mg (0.5 - 1 x 5 mg) PO Q8H 10/15/23 PRN #10 caps Previous Rx's Medication Instructions Recorded bisacodyl 5 mg tablet,delayed 5 mg PO ONCE colonscopy bowel prep 08/06/23 release (Dulcolax (bisacodyl)) #4 tabs polyethylene glycol 3350 17 238 g PO ONCE colonoscopy prep 08/06/23 gram/dose oral powder #238 grams Saccharomyces boulardii 250 mg 250 mg PO BID #20 caps 10/15/23 capsule (Florastor) cefuroxime axetil 500 mg tablet 500 mg PO BID #20 tabs 10/15/23 metronidazole 500 mg tablet 500 mg PO TID #30 tabs 10/15/23 oxycodone 5 mg capsule 2.5 - 5 mg (0.5 - 1 x 5 mg) PO Q8H 10/15/23 PRN #10 caps Allergies Allergy/AdvReac Type Severity Reaction Status Date / Time amoxicillin AdvReac Intermediate Unverified 10/15/23 08:54 General Stated Complaint: Abd Prob LALA: 3 PFSH All Active Problems (Updated 08/13/23 @ 14:03 by Angi Evans DO) Leukocytosis (leucocytosis) (Acute) Acute diverticulitis (Acute) Diverticulitis (Chronic) Abdominal pain (Acute) Fall (Acute) Medical History Adjustment disorder Anxiety Breast cyst Right Depression GERD (gastroesophageal reflux disease) High blood pressure Hyperlipemia Mild obstructive sleep apnea Neuropathy pt denies PTSD (post-traumatic stress disorder) Per pt. states nothing currently that is a potential trigger at this time. Surgical History History of cataract surgery History of cholecystectomy History of hysterectomy Hx of appendectomy Hx of removal of cyst R groin - multi cyst removal Hx of tonsillectomy Family History Mother Type 2 diabetes mellitus Breast cancer Father Heart disease Colon cancer Kidney failure Brother Brain tumor Cerebral artery occlusion with cerebral infarction Sister Coronary artery disease Paternal Aunt Diabetes Social History Smoking/Tobacco Use Status: Never Smoking risk assessment performed?: Yes Alcohol Intake: current Alcohol Intake frequency: holidays/special occasions only Drug use: Never Substance use type: does not use Housing: house What is your relationship status?: Panel score (0-1 are the most socially isolated patients): 0 Do you feel safe at home: Yes Do you feel safe in your relationship?: Yes Course Vital Signs Vital signs: Vital Signs Temperature 36.7 C 10/15/23 08:49 Pulse 80 10/15/23 08:49 Respiratory Rate 18 10/15/23 08:49 Blood Pressure 209/76 H 10/15/23 08:49 Pulse Oximetry 94 10/15/23 08:49 Temperature 36.7 C 10/15/23 09:06 Temperature Source Oral 10/15/23 09:06 Pulse 80 10/15/23 09:06 Respiratory Rate 18 10/15/23 09:06 Respiratory Effort Normal 10/15/23 08:58 Blood Pressure 209/76 H 10/15/23 09:06 Blood Pressure Position Supine 10/15/23 09:06 Pulse Oximetry 94 10/15/23 09:06 Oxygen Delivery Method Room Air 10/15/23 09:06 Oxygen Flow Rate 0 10/15/23 09:06 Pain Level 8 10/15/23 09:06 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
[2023-10-15 09:27] VITALS: BP 205/95; PULSE 77
[2023-10-15 09:31] VITALS: BP 170/80
[2023-10-15 09:41] LABS: Abs Immature Grans 0.03 10^3/uL (0.0-0.06); Absolute Lymphocyte Count 2.59 10^3/uL (1.2-3.4); Absolute Monocyte Count 0.83 10^3/uL (0.1-0.8); Basophils % 0.4; Eosinophils % 1.8; HCT 47.1 % (36.0-46.0); HGB 15.7 g/dL (11.2-15.7); Immature Grans % 0.3; Lymphocytes % 22.9; MCH 28.2 pg (27.0-33.0); MCHC 33.3 % (32.0-36.0); MCV 85 fL (80-95); MPV 9.4 fL (8.0-11.0); Monocytes % 7.3; Neutrophils % 67.3; Platelet Count 292 10^3/uL (130-400); RBC 5.57 10^6/uL (3.93-5.22); RDW 13.7 % (11.7-14.6); RDW-SD 42.2 fL; WBC 11.33 10^3/uL (4.4-10.8)
[2023-10-15] MEDS: ACETAMINOPHEN 1,000 MG/100 ML BTL 400 MG IVPB (09:42)
[2023-10-15] MEDS: oxyCODONE 5 MG TAB PO (09:42)
[2023-10-15 09:43] LABS: Bilirubin Small (Negative); Blood Negative (Negative); Clarity Sl Cloudy (Clear); Glucose Negative (Negative); Ketones Trace mg/dL (Negative); Leukocyte Esterase Negative (Negative); Nitrite Negative (Negative); Specific Gravity >= 1.030 (1.005-1.025); pH 5.5 (5-8)
[2023-10-15 09:43] LABS: Absolute Basophil Count 0.05 10^3/uL (0.0-0.2); Absolute Neutrophil Count 7.63 10^3/uL (1.2-6.7)
[2023-10-15 09:51] LABS: Bacteria Many HPF (Negative); C & S Indicated? No/Sq. Contamination; Casts Negative LPF (Negative); Crystals Negative HPF (Negative); Epithelial Cells Many HPF (Negative); Mucus Heavy (Negative); Other Cells Negative (Negative); RBC Negative HPF (0-2)
[2023-10-15 09:58] LABS: ALT 42 U/L (14-59); AST 20 U/L (15-37); Alkaline Phosphatase 86 U/L (46-116); Anion Gap 7.6 mmol/L (3-11); BUN 18 mg/dL (7-18); Bilirubin, Total 1.3 mg/dL (0.2-1.0); CO2 29.4 mmol/L (21.0-32.0); CREATININE 0.9 mg/dL (0.55-1.02); Calcium 9.9 mg/dL (8.5-10.1); Chloride 101 mmol/L (98-107); Glucose 115 mg/dL (74-106); Lipase 33 U/L (16-77); Potassium 4.1 mmol/L (3.5-5.1); Sodium 138 mmol/L (136-145); Total Protein 8.1 g/dL (6.4-8.2)
[2023-10-15] MEDS: Normal Saline Flush 10 ML SYR IVP (10:16)
[2023-10-15] MEDS: Normal Saline - Diluent 50 ML VIAL IJ (10:17)
[2023-10-15] MEDS: Omnipaque 350 MG/ML 100 ML BTL IJ (10:18)
--- NOTE | 2023-10-15 11:10 | NUR.NOTE ---
Referral faxedx to [facility] for recurrent diverticulits, in 2 weeks. Nursing Note:
[2023-10-15 11:14] VITALS: BP 150/62; PULSE 63; O2SAT 92
[2023-10-15 11:16] VITALS: BP 168/62; PULSE 64; O2SAT 91
[2023-10-15] MEDS: Cefuroxime 500 MG TAB PO (11:23)
[2023-10-15] MEDS: metroNIDAZOLE 500 MG TAB PO (11:23)
== END 2023-10-15 11:32 | disposition home or self-care (01) ==
LOC: ER 08:59
PROVIDERS: Emergency Provider Physician Assistant; PCP Nurse Practitioner
DX: K57.32 Diverticulitis of large intestine without perforation or abscess without bleeding; R10.32 Left lower quadrant pain; Z87.19 Personal history of other diseases of the digestive system
CPT/HCPCS: 80053; 83690; 96365; 96375; 99285; 74177; 81003; 81015; 83735; 85025; 99284; J0131; J3490

== ENCOUNTER → 2023-10-29 14:14 | Outpatient (BNVA) | payer MEDICARE, SELFPAY | PROVIDERS: PCP Nurse Practitioner; Referring Provider Physician Assistant; Visit Provider Surgery | DX: K57.92 Diverticulitis of intestine, part unspecified, without perforation or abscess without bleeding (principal); K21.9 Gastro-esophageal reflux disease without esophagitis; I10 Essential (primary) hypertension | CPT/HCPCS: 99213 ==